=== PATIENT | male | born 1945 | race Caucasian/White ===

== ENCOUNTER 2021-12-14 08:58 | Inpatient (IN) | payer OTHER, SELFPAY ==
[2021-12-14] VITALS (20 sets, daily range): BP systolic 88–135; BP diastolic 53–79; PULSE 63–128; RESP 16–29; TEMP 35.7–38.5; O2SAT 94–100; BMI 26.3
--- NOTE | ~2021-12-14 | NM_ITS ---
EXAMINATION: NM hepatobiliary wo pharm DATE: 12/23/2021 16:26 INDICATION: Acute cholecystitis COMPARISON: CT and ultrasound dated 12/14/2021 TECHNIQUE: 5.0 mCi Tc-99m mebrofenin (Choletec) was administered intravenously. Scintigraphic images of the abdomen were obtained for one hour. Additional 1 hour and 15 minute delayed images were obtai tl. FINDINGS: There is delayed clearance of radiotracer from the blood pool. There is homogeneous tracer uptake by the liver. There is delayed excretion of activity with no activity seen in the common duct, gallbladd er or bowel on the 60 minute imaging. There is however prominent activity within the gallbladder on t he 1 hour and 15 minute image were additional activity seen both in the common bile duct as well as i n the small bowel. IMPRESSION: 1. Activity seen within the gallbladder at 1 hour and 15 minutes which strongly argues against acute cholecystitis. The differential for the prominent edematous wall thickening of the gallbladder would also include hepatitis, cirrhosis, heart disease, renal failure, sepsis or other generalized edema f orming states. 2. Delayed clearance of activity from the blood pool without evident biliary ductal obstruction with activity extending to the small bowel and without evident intra-articular extra hepatic ductal or julissa richard dilation on prior imaging which suggests other liver disease such as cirrhosis or hepatitis. Reviewed, dictated and finalized at location A. IMPRESSION: 1. Activity seen within the gallbladder at 1 hour and 15 minutes which strongl y argues against acute cholecystitis. The differential for the prominent edemat ous wall thickening of the gallbladder would also include hepatitis, cirrhosis, heart disease, renal failure, sepsis or other generalized edema forming states . 2. Delayed clearance of activity from the blood pool without evident biliary du ctal obstruction with activity extending to the small bowel and without evident intra-articular extra hepatic ductal or ductal dilation on prior imaging which suggests other liver disease such as cirrhosis or hepatitis.
--- NOTE | ~2021-12-14 | US_ITS ---
US abdomen limited DATE: 12/14/2021 11:36 INDICATION: Covid or wall thickening. Nausea, fever TECHNIQUE: Real-time imaging of liver, pancreas, gallbladder areas COMPARISON: None FINDINGS: There is focal calcification of the gallbladder wall and thickening of the gallbladder wall up to 3.4 mm. There is severe pericholecystic septated fluid. Gallbladder gangrene is not excluded. Clinical and possible surgical correlation is advised. There are multiple enlarged upper abdominal lymph nodes. No hepatic or pancreatic space-occupying mass lesion is evident. Normal hepatopedal portal venous gali w direction. The common bile duct measures 7 mm. IMPRESSION: Gallbladder wall thickening, small focal gallbladder wall calcification and very prominen t septated fluid or edema in the pericholecystic area; gallbladder gangrene is not excluded. Clinical and possibly surgical correlation is recommended. Upper abdominal lymphadenopathy Reviewed, dictated and finalized at Location [facility]. Reviewed, dictated and finalized at location A. IMPRESSION: Gallbladder wall thickening, small focal gallbladder wall calcifica tion and very prominent septated fluid or edema in the pericholecystic area; ga llbladder gangrene is not excluded. Clinical and possibly surgical correlation is recommended. Upper abdominal lymphadenopathy
--- NOTE | ~2021-12-14 | CT_ITS ---
EXAMINATION: CT abdomen pelvis wo con DATE: 12/14/2021 10:05 INDICATION: Nausea, fever. History kidney stones. TECHNIQUE: Computed tomography (CT) of the abdomen and pelvis was performed without intravenous contr ast. Automated exposure control and iterative reconstruction technique were employed. Exam dose: 390 .32 mGy-cm total exam DLP. COMPARISON: None. FINDINGS: There is minimal discoid atelectasis or scarring at the lung bases. No basilar infiltrate o r consolidation. Normal heart size. Coronary artery calcifications. Moderately large sliding hiatal hernia. There is gastrohepatic, periportal and superior periaortic and aortocaval and pericaval lymphadenopat hy, upper left periaortic lymph nodes measuring up to 2.2 cm, pericaval lymph nodes measuring up to 2 .3 cm greater than 3 cm dimension. There is very prominent pericholecystic fluid collection or thickening/edema of the gallbladder wall. Small, lateral wall focal calcification versus small gallstone(s(. Gallbladder ultrasound may be hel pful for further evaluation. No bile duct or pancreatic duct dilatation. No hepatic, splenic, pancreatic or adrenal space-occupying mass lesion is evident. Multiple right renal cyst measuring up to 4 cm diameter. There are multiple upper pole and lower pole small right renal nonobstructing calculi and one or 2 sm all left renal calcifications are arterial calcifications. No ureteral calculus or hydroureteronephro sis is noted. There is atherosclerotic calcification of the abdominal aorta and at the origins of celiac and superi or mesenteric and left renal arteries, inferior mesenteric artery calcification. No abdominal aortic aneurysm. There is calcification of the iliac and femoral arteries. Status post prostatectomy and bilateral pelvic sidewall lymph node dissection. There is moderate diff use thickening of the urinary bladder wall. Mild sigmoid colon diverticulosis; no evidence of diverticulitis. No bowel obstruction or intraperitoneal free air. Old healed bilateral rib fractures. Degenerative changes of the thoracic and lumbar spine. No suspicious osteolytic or osteoblastic lesio ns are noted. IMPRESSION: Prominent upper abdominal lymphadenopathy including gastrohepatic, periportal and partic ularly superior periaortic, aortocaval and pericaval locations; consider lymphoma, metastatic disease Very prominent pericholecystic fluid or gallbladder wall thickening/edema Possible small focal gallbladder wall calcification versus small gallstone(s) Right renal cysts measuring up to 4 cm Bilateral nonobstructive nephrolithiasis Large hiatal hernia Mild colonic diverticulosis; no evidence of diverticulitis Status post prostatectomy and bilateral pelvic side wall lymph node dissection Reviewed, dictated and finalized at Location [facility]. Reviewed, dictated and finalized at location A. IMPRESSION: Prominent upper abdominal lymphadenopathy including gastrohepatic, periportal and particularly superior periaortic, aortocaval and pericaval loca tions; consider lymphoma, metastatic disease Very prominent pericholecystic fluid or gallbladder wall thickening/edema Possible small focal gallbladder wall calcification versus small gallstone(s) Right renal cysts measuring up to 4 cm Bilateral nonobstructive nephrolithiasis Large hiatal hernia Mild colonic diverticulosis; no evidence of diverticulitis Status post prostatectomy and bilateral pelvic side wall lymph node dissection
--- NOTE | ~2021-12-14 | BM_ITS ---
EXAMINATION: CCL bone marrow asp w bx diag ORDER COMPLETED DATE: 12/18/2021 11:35 INDICATION: Pancytopenia and lymphadenopathy TECHNIQUE: A time-out was performed to verify the patient's name, date of , and procedure to b e performed. The procedure including the risks and benefits was discussed with the patient. Risks dis cussed included bleeding, infection, nerve injury and allergic reaction. The patient understood the r isks and agreed to proceed. The skin overlying the right posterior iliac spine was prepped and draped in usual sterile fashion. Anesthetic was administered with 1% lidocaine subcutaneously. Moderate co nscious sedation was achieved with 50 mcg fentanyl IV. An 11 gauge needle was inserted into the ilium with fluoroscopic guidance. Bone marrow was aspirated. An 8 gauge needle was then inserted into the ilium with fluoroscopic guidance. A core bone marrow biopsy was obtained. The needle was removed and the entry site was cleaned and dressed. There were no immediate complications. A total of 47 fluoros copic images were recorded. Fluoroscopy exposure time was 0.1 minutes. FINDINGS: Real-time fluoroscopy demonstrates the biopsy needle tip overlying the right posterior zackary c spine. IMPRESSION: 1. Successful fluoroscopic guided bone marrow aspiration. 2. Successful fluoroscopic guided bone marrow biopsy. Reviewed, dictated and finalized at location A.
--- NOTE | ~2021-12-14 | XR_ITS ---
XR chest 1V portable DATE: 12/14/2021 09:26 INDICATION: Fever which began yesterday. Weakness. TECHNIQUE: Portable AP chest on December 14, 2021 at 0922 hours COMPARISON: None FINDINGS: Heart size appears within normal range. Is aortic calcification and tortuosity. No pulmonary infiltrate or consolidation, pleural effusion or pulmonary vascular congestion or pneumo thorax is detected. Osteopenia. IMPRESSION: No active cardiopulmonary disease Aortic calcification and tortuosity Reviewed, dictated and finalized at location A.
--- NOTE | ~2021-12-14 | US_ITS ---
EXAMINATION: US venous doppler [facility] DATE: 12/15/2021 10:14 INDICATION: Bilateral lower limb swelling. TECHNIQUE: Grayscale images without and with compression and Doppler images of the bilateral lower ex tremity veins were obtained. COMPARISON: None. FINDINGS: The right common femoral vein, profunda (deep) femoral vein, femoral vein, popliteal vein, peroneal v ein, posterior tibial veins, and greater saphenous vein are patent, noting somewhat limited visualiza tion of the calf veins. The left common femoral vein, profunda femoral vein, femoral vein, popliteal vein, peroneal vein, pos terior tibial veins, and greater saphenous vein are patent, noting somewhat limited visualization of the calf veins. IMPRESSION: 1. Somewhat limited evaluation of the calf veins, within that constraint, patent bilateral lower ext remity veins. No evidence of deep venous thrombosis. Reviewed, dictated and finalized at location K. IMPRESSION: 1. Somewhat limited evaluation of the calf veins, within that constraint, thomas nt bilateral lower extremity veins. No evidence of deep venous thrombosis.
--- NOTE | 2021-12-14 09:12 | ECG_ITS ---
Measurements Intervals [place] Rate: 120 P: -32 FL: 133 QRS: -12 QRSD: 89 T: 26 QT: 293 QTc: 416 Interpretive Statements SINUS TACHYCARDIA ABNORMAL RHYTHM ECG NO PREVIOUS ECG AVAILABLE FOR COMPARISON Electronically Signed On 12-14-2021 13:42:12 CDT by Lupe Leos M.D.
--- NOTE | 2021-12-14 09:34 | ED.WEAKNESS ---
HPI - Weakness General Chief complaint: Weakness <Carmela Santiago PA-C - Last Filed: 12/14/21 19:51> Stated complaint: gen. weakness <Carmela Santiago PA-C - Last Filed: 12/14/21 19:51> Time Seen by Provider: 12/14/21 09:08 <Carmela Santiago PA-C - Last Filed: 12/14/21 19:51> Source: patient <MARKO Ackerman Last Filed: 12/14/21 19:51> Mode of arrival: EMS <MARKO Ackerman Last Filed: 12/14/21 19:51> Limitations: other (Poor historian) <Carmela Santiago PA-C - Last Filed: 12/14/21 19:51> History of Present Illness HPI Narrative: This is a 76-year-old male that presents to the emergency department for generalized weakness. Reports over the last couple of weeks he has had nausea and decreased appetite. Yesterday he was seen at another ER and noted to be febrile as well. Diagnosed with viral syndrome. He had negative COVID and influenza tests. Reports today he was feeling so weak that he was unable to get off of the couch. Reports that his legs have become more swollen recently. He is unsure how long this has been going on. He used to be on diuretics, but was taken off of these as they told him he did not need them anymore. He also reports longstanding history of numerous kidney stones for which she sees a urologist in [place]. Denies chest pain, shortness of breath, vomiting, diarrhea, dysuria, or hematuria. <Carmela Santiago PA-C - Last Filed: 12/14/21 19:51> Related Data Home medications: Home Medications Medication Instructions Recorded Confirmed Adult Low Dose Aspirin 81 mg BYMOUTH QID 12/14/21 12/14/21 lansoprazole [Prevacid 24Hr] 15 mg PO DAILY 12/14/21 12/14/21 metoprolol tartrate 50 mg PO DAILY 12/14/21 12/14/21 vxgbcdyh-iqv-KI-lycopen-lutein 1 tablet PO DAILY 12/14/21 12/14/21 [Centrum Silver Men] potassium citrate 10 meq PO BID 12/14/21 12/14/21 pravastatin 20 mg PO DAILY 12/14/21 12/14/21 <Carmela Santiago PA-C - Last Filed: 12/14/21 19:51> Allergies/Adverse reactions: Allergies Allergy/AdvReac Type Severity Reaction Status Date / Time No Known Allergies Allergy Unverified 12/14/21 09:07 <Carmela Santiago PA-C - Last Filed: 12/14/21 19:51> Review of Systems Review of Systems: CONSTITUTIONAL: Reports fever ENT: Denies congestion, sore throat CARDIOVASCULAR: Reports edema. Denies chest pain RESPIRATORY: Denies cough or dyspnea. GASTROINTESTINAL: Reports nausea. Denies abdominal pain, vomiting, or diarrhea. GENITOURINARY: Denies dysuria or hematuria. NEUROLOGIC: Reports generalized weakness. <Carmela Santiago PA-C - Last Filed: 12/14/21 19:51> All systems reviewed & are unremarkable except as noted in HPI and below <Carmela Santiago PA-C - Last Filed: 12/14/21 19:51> [facility] Past Medical History Medical History: Medical History Arthritis Gout Hyperlipidemia Hypertension Kidney stones Prostate cancer <Carmela Santiago PA-C - Last Filed: 12/14/21 19:51> Surgical History Surgical History: Surgical History History of appendectomy History of arthroplasty of right knee History of inguinal hernia repair History of prostatectomy (2016) History of tonsillectomy <Carmela Santiago PA-C - Last Filed: 12/14/21 19:51> Family History Family History: Family History Father Colon cancer Cerebrovascular accident Other Congestive heart failure <MARKO Ackerman Last Filed: 12/14/21 19:51> Social History Social History: Social History Social History: Surrogate decision maker: Elida Bautista, sibling or Wilian Bautista, [id number]. Code status: Full code. Smoking status: Never smoker Alcohol intake: never Substance use: never Substance use type: does not use Additional marisa
[2021-12-14 10:00] LABS: Hematocrit 34.6 % (42.0-52.0); Hemoglobin 11.9 g/dL (14.0-18.0); Immature Platelet Fraction Pct 5.7 % (0.9-11.2); Mean Corpuscular HGB Conc 34.4 g/dl (32-36); Mean Corpuscular Hemoglobin 29.9 pg (26-34); Mean Corpuscular Volume 86.9 fl (80-100); Mean Platelet Volume 11.4 fl (7.4-10.4); Platelet Count Result 87 k/mm3 (150-375); Red Blood Count 3.98 M/mm3 (4.6-6.20); Red Cell Distribution Width 14.1 % (11.5-14.5); White Blood Count 3.8 K/mm3 (4.5-10.0)
[2021-12-14] MEDS: SODIUM CHLORIDE 0.9% IV 500 ML 999 ML IV CONT ×4 (10:04→13:12)
[2021-12-14 10:13] LABS: Lactic Acid Reflex 1.8 mmol/L (0.7-2.0)
[2021-12-14 10:14] LABS: INR 1.5; Prothrombin Time 17.6 Seconds (11.1-14.7)
[2021-12-14 10:15] LABS: Alanine Aminotransferase 72 U/L (4-50); Alkaline Phosphatase 325 U/L (38-126); Anion Gap 6 mmol/L (8-16); Aspartate Amino Transferase 113 U/L (17-59); Bilirubin,Total 1.2 mg/dL (0.2-1.3); Blood Urea Nitrogen 22 mg/dL (9-20); CRP 1.6 mg/dL (<1.0); Calcium 7.9 mg/dL (8.4-10.2); Carbon Dioxide 20 mmol/L (22-30); Chloride 105 mmol/L (98-107); Estimated CRCL calculation 48 ml/min; Estimated Glomerular Filt Rate > 60; Glucose 117 mg/dL (65-110); Lipase 361 U/L (23-300); Partial Thromboplastin Time 45.1 SECONDS (22.3-36.8); Potassium 4.1 mmol/L (3.4-5.0); Sodium 131 mmol/L (137-145)
[2021-12-14 10:45] LABS: Add Urine Microscopic? YES; Appearance Urine Clear (Clear); Bilirubin Urine Negative (Negative); Blood Urine 1+ (Negative); Color Urine Amber (Yellow); Glucose Urine UA Negative (Negative); Ketones Urine Trace mg/dL (Negative); Leukocyte Esterase Ur Negative LEU/UL (Negative); Mucus Urine Rare /lpf; Nitrate Urine Negative (Negative); Protein Urine 1+ mg/dL (Negative); RBC Urine 0-2 /hpf (0-2); Specific Grav Ur 1.021 (1.001-1.035)
[2021-12-14 10:55] LABS: Band Neutrophils Percent 10 % (0-6); Lymphocytes Absolute Manual 0.68 K/mm3 (1.1-4.5); Lymphocytes Percent Manual 18 % (18-44); Monocytes Absolute Manual 0.15 K/mm3 (0.1-0.90); Monocytes Percent Manual 4 % (3-9); Neutrophils Absolute Manual 2.96 K/mm3 (1.3-6.7); Neutrophils Percent Manual 68 % (46-73); Platelet Estimate Decreased (Adequate); Total Cells Counted 100
--- NOTE | 2021-12-14 13:38 | PC.NURSE ---
IV fluids still running when transferring to the floor.
--- NOTE | 2021-12-14 13:45 | PM.IMHP ---
H&P: HPI History of Present Illness Date/Time: 12/14/21 13:45 Chief Complaint: Weakness and nausea. Narrative: This is a pleasant 76-year-old male with history of hypertension, hyperlipidemia, prostate cancer status post prostatectomy, GERD, gout, and kidney stones who presented to the emergency department via EMS from home for evaluation of weakness and nausea. He reports a gradual onset of nausea and decreased appetite over the last 3 to 4 weeks which led him to make an appointment with his doctor yesterday at which time he was directed to the ED at [facility] given concerns for dehydration. Per patient report, he was diagnosed with a viral syndrome and was hydrated and discharged home. He did not sleep well last night due to sweats and low-grade temperature and with further questioning it sounds as though this has been an ongoing issue for him at night and in the mornings these past several weeks. This morning he felt a bit confused and weak and he was brought in for evaluation. On arrival to the emergency department his temperature was 100.3? F and his blood pressure was as low as 88/53 although that has improved with IV fluids. Pertinent labs include a mild pancytopenia with 10% bands on manual differential, mild prolonged coags, and elevated LFTs with a normal bilirubin. CT of the abdomen and pelvis showed prominent upper abdominal lymphadenopathy and pericholecystic fluid or gallbladder wall thickening/edema and subsequent abdominal ultrasound showed gallbladder wall thickening with a small focal gallbladder wall calcification and prominent septated fluid or edema in the armin cholecystic area. He is being admitted in this setting for further treatment of possible cholecystitis and evaluation of his abnormal imaging findings. At the time my evaluation he is resting comfortably and feels somewhat better after receiving IV fluids. He lost 20 lb 4 years ago after his passed and his weight has been steady since that time. He has noticed some mild swelling in his legs, right greater than left though he has attributed that to not getting up and about as much over the last several weeks. Aside from nausea, weakness, and fever he has not really had any other significant symptoms to complain about. He denies headache, neck ache, congestion, sore throat, cough, vomiting, diarrhea, and dysuria. He also denies lightheadedness, dizziness, syncope, near syncope, chest pain, pleuritic pain, shortness of breath, paroxysmal nocturnal dyspnea, and orthopnea. He has not noticed any palpable lymphadenopathy. Review of Systems Review of Systems: Twelve systems were reviewed and are negative except for as per HPI. [facility] Past Medical History Medical History Arthritis Gout Hyperlipidemia Hypertension Kidney stones Prostate cancer Surgical History Surgical History (Updated 12/14/21 @ 21:32 by Tanya Eaton PA-C) History of appendectomy History of arthroplasty of right knee History of inguinal hernia repair History of prostatectomy (2016) History of tonsillectomy Family History Family History Father Colon cancer Cerebrovascular accident Other Congestive heart failure Social History Social History (Updated 12/14/21 @ 21:33 by Tanya Eaton PA-C) Social History: Surrogate decision maker: Elida Bautista, sibling or Wilian Bautista, [id number]. Code status: Full code. Smoking status: Never smoker Alcohol intake: never Substance use: never Substance use type: does not use Additional living arrangements comments: The patient is and lives in [place]. He has no children. Additional occupation/education comments: Retired pharmacist. Spiritual care concerns: No Meds Home Medications and Allergies Home Medications Medication Instructions Recorded Confirmed Type Adult Low
--- NOTE | 2021-12-14 13:56 | ADMGEN ---
This patient, Bartolo Dent, was admitted to IMU Room 201-01. Patient/family oriented to hospital policies and general routines including ID bracelet, bed and alarms, visiting hours, pain management, procedures, bathroom and other care routines, personal items, smoking policy, room service/diet, and visiting hours. Information on how to activate the Rapid Response Team has been discussed. Patient/Family are encouraged to report perceived risks to care and to ask questions if they do not understand what they are told or what they should do.
[2021-12-14 15:41] LABS: Immature Reticulocyte Fraction 15.7 % (3.0-15.9); Reticulocyte Hemoglobin Conten 32.9 pg (28.2-35.7); Reticulocyte Percent 1.56 % (0.7-4.3); Reticulocytes Absolute 0.06 B/L (32.2-175.7)
[2021-12-14 15:47] LABS: Creatine Kinase 1286 U/L (55-170); Lactate Dehydrogenase 1991 U/L (313-618); Magnesium 2.1 mg/dL (1.6-2.3); Phosphorus 3.7 mg/dL (2.5-4.5); Uric Acid 4.7 mg/dL (3.5-8.5)
[2021-12-14 16:25] LABS: Iron 19 ug/dL (49-181)
[2021-12-14 16:35] LABS: Percent Iron Saturation 8 % (20-50)
[2021-12-14 16:57] LABS: Thyroid Stimulating Hormone Reflex 0.767 uIU/mL (0.465-4.68)
[2021-12-14 17:00] LABS: Folic Acid > 20.0 ng/mL (2.76->20)
[2021-12-14 17:02] LABS: Hepatitis B Surface Antigen Negative (Negative)
--- NOTE | 2021-12-14 17:06 | PC.NURSE ---
RN did [place] on patient. Patient was 27% responsive to fluid. Hiliary PA notified.
[2021-12-14 17:07] LABS: HAV RESULT Negative (Negative); Hepatitis B Core IgM Result Negative (Negative)
[2021-12-14 17:19] LABS: Hepatitis C Virus Antibody Negative (Negative)
[2021-12-14] MEDS: LACTATED RINGERS 1,000 ML 999 ML IV CONT (17:34)
[2021-12-14] MEDS: LACTATED RINGERS 1,000 ML 80 ML IV CONT (17:34)
[2021-12-14] MEDS: POTASSIUM CITRATE 5 MEQ TAB CR 10 MEQ PO (21:28)
[2021-12-14] MEDS: ACETAMINOPHEN 325 MG TABLET 650 MG PO (21:29)
[2021-12-15] VITALS (20 sets, daily range): BP systolic 90–143; BP diastolic 51–82; PULSE 71–115; RESP 20–24; TEMP 36.7–38; O2SAT 97–100
[2021-12-15] MEDS: ACETAMINOPHEN 325 MG TABLET 650 MG PO ×3 (04:27→22:49)
[2021-12-15 05:03] LABS: Hematocrit 33.9 % (42.0-52.0); Hemoglobin 11.4 g/dL (14.0-18.0); Immature Platelet Fraction Pct 6.2 % (0.9-11.2); Mean Corpuscular HGB Conc 33.6 g/dl (32-36); Mean Corpuscular Hemoglobin 29.6 pg (26-34); Mean Corpuscular Volume 88.1 fl (80-100); Mean Platelet Volume 11.5 fl (7.4-10.4); Platelet Count Result 82 k/mm3 (150-375); Red Blood Count 3.85 M/mm3 (4.6-6.20); Red Cell Distribution Width 14.4 % (11.5-14.5); White Blood Count 4.8 K/mm3 (4.5-10.0)
[2021-12-15 05:16] LABS: Alanine Aminotransferase 71 U/L (4-50); Albumin Level 2.4 g/dL (3.5-5.1); Alkaline Phosphatase 281 U/L (38-126); Anion Gap 3 mmol/L (8-16); Aspartate Amino Transferase 156 U/L (17-59); Bilirubin,Total 1.2 mg/dL (0.2-1.3); Blood Urea Nitrogen 19 mg/dL (9-20); Calcium 7.3 mg/dL (8.4-10.2); Carbon Dioxide 22 mmol/L (22-30); Chloride 106 mmol/L (98-107); Estimated CRCL calculation 52 ml/min; Estimated Glomerular Filt Rate > 60; Glucose 104 mg/dL (65-110); Lipase 253 U/L (23-300); Sodium 131 mmol/L (137-145)
[2021-12-15 05:19] LABS: Creatine Kinase 2102 U/L (55-170)
[2021-12-15] MEDS: LACTATED RINGERS 1,000 ML 100 ML IV CONT ×2 (05:36→16:30)
[2021-12-15] MEDS: OPTI-GEN TAB 1 TABLET PO (08:45)
[2021-12-15] MEDS: POTASSIUM CITRATE 5 MEQ TAB CR 10 MEQ PO ×2 (08:45→16:32)
[2021-12-15] MEDS: PANTOPRAZOLE 40 MG TABLET PO (08:45)
--- NOTE | 2021-12-15 10:07 | PM.IMPN ---
Progress Note: A&P Assessment and Plan (1) Abdominal lymphadenopathy: Code(s): R59.0 - Localized enlarged lymph nodes Status: Acute Assessment and Plan: - Heightened concern for potential oncological process due to extensive lymphadenopathy within the abdominal cavity. -hematology oncology is consulted at this time in the presence of pancytopenia. -surgery has evaluated and suggests that the amount of enlarged lymph nodes present in the abdominal cavity is extensive even for cholecystitis and recommends potential biopsy need in the future. (2) Transaminitis: Code(s): R74.01 - Elevation of levels of liver transaminase levels Status: Acute Assessment and Plan: -patient with transaminitis AST increasing from 08/29 yesterday 09/17/2055 today, ALT decreasing from 72-71 and alk-phos down to 281 from 11/08. Bilirubin is normal at 1.2. -both CT of the abdomen and pelvis as well as ultrasound of the right upper quadrant are suggestive of acute cholecystitis. -surgery consult and recommends treatment with IV antibiotics at this time versus surgery intervention. -will continue to trend liver enzymes during hospitalization (3) Pancytopenia: Code(s): D61.818 - Other pancytopenia Status: Acute Assessment and Plan: -to PVC today are marginally increased to 4.8 from 3.8 yesterday. Hemoglobin and hematocrit are stable at 11.4 33.9. Platelets remain low at 82. -etiology unknown. -heme Onc is consult for further recommendations. (4) Abnormal findings on diagnostic imaging of gallbladder: Code(s): R93.2 - Abnormal findings on diagnostic imaging of liver and biliary tract Status: Acute Assessment and Plan: -continue Zosyn q.6 hours. -general surgery consulted and recommends conservative treatment with antibiotics versus surgical intervention at this time. -as reflected an elevated transaminases. Will continue to trend downward. -consider repeat imaging if worsening of clinical condition (5) Generalized weakness: Code(s): R53.1 - Weakness Status: Acute Assessment and Plan: -PTOT evaluation -likely secondary to elevated CK, question rhabdo -continue hydration with LR at 100 mL/hour. -trend CK, LDH and CRP. (6) Hypertension: Qualifiers: Hypertension type: unspecified Qualified Code(s): I10 - Essential (primary) hypertension Code(s): I10 - Essential (primary) hypertension Status: Acute Assessment and Plan: -there is been interval improvement in blood pressures. -continue IV fluids and hold oral antihypertensives. -continue to monitor vital signs, continue telemetry. (7) Hyperlipidemia: Qualifiers: Hyperlipidemia type: unspecified Qualified Code(s): E78.5 - Hyperlipidemia, unspecified Code(s): E78.5 - Hyperlipidemia, unspecified Status: Acute Assessment and Plan: -hold statin in setting of transaminitis. Time Spent With Patient Time with patient: 25 - 35 minutes Subjective Date/time seen: 12/15/21 10:07 This pt. was examined at the bedside today in interval assessment after being admitted to the hospital for multiple issues including abdominal LN, Transaminitis, Pancytopenia, concern for acute cholecystitis, HTN, Generalized weakness and fatigue, and HLD. Pts CT scan showed concerning signs for potential concern of widespread, prominent LN's, as well as gallbladder thickening. In addition he has right renal cysts. Abdomen US was also concerning for possible GB etiology along with LN. Surgery was consulted and we are currently awaiting their recommendations. Pt. also showed pancytopenia upon arrival to ER and the etiology of this is uncertain, infection vs. lymphoma? Will consult Hematology for their specific recommendations. He remains on Zosyn currently. Pt. endorsed that he had recently had swelling of his legs, and was unsure why. He will be having Venous Dopplers today. He
--- NOTE | 2021-12-15 10:20 | PM.CNGS ---
Assessment and Plan Assessment and plan (1) Acute cholecystitis: Code(s): K81.0 - Acute cholecystitis Status: Acute Assessment and Plan: exam benign, seems to be improving c conservative measures including IV abx, donnie reg diet this am (2) Abdominal lymphadenopathy: Code(s): R59.0 - Localized enlarged lymph nodes Status: Acute Assessment and Plan: ? etiology, seems extensive for cholecystitis, will likely need repeat imaging and possible biopsy History of Present Illness Consult details Consult date: 12/15/21 Reason for consult: other (weakness, nausea, anorexia) Requesting physician: Tanya Eaton PA-C Narrative: Pt is a 76 y/o M presenting to ED c/o severe weakness over last few wks. Pt reports poor appetite and nausea over about the last month. Pt denies any abd pain, fevers, etc. Pt has had extensive workup suggestive of acute cholecystitis and generalized upper abdominal LAD. Upon evaluation today, pt reports he is feeling much better and donnie reg diet. Pt denies any abd pain, changes in bowel habits, bloating. Review of Systems Constitutional: Constitutional: Reports anorexia, Denies chills, Reports fatigue, Denies fever(s), Denies headache(s), Denies increased appetite, Reports lethargy, Reports malaise, Reports poor appetite, Reports weakness, Denies weight gain and Denies weight loss Eyes: Eyes: Reports no additional eye complaints ENT: Reports system reviewed and no additional complaints, except as documented Cardiovascular: Cardiovascular: Reports no additional cardiovascular complaints Respiratory: Respiratory: Reports no additional respiratory complaints Gastrointestinal: Gastrointestinal: Reports as per HPI, Denies abdominal pain, Denies bloating, Denies change in stool character, Denies constipation, Denies GI cramping, Reports heartburn, Denies diarrhea, Reports nausea and Denies vomiting Genitourinary: Genitourinary: Reports no additional male genitourinary complaints Musculoskeletal: Musculoskeletal: Reports no additional musculoskeletal complaints Integumentary/Breasts: Skin/Breast: Reports system reviewed and no additional complaints, except as docu Neurologic: Reports system reviewed and no additional complaints, except as documented Psychiatric: Psychiatric: Reports no additional psychiatric complaints Endocrine: Endocrine: Reports no additional endocrine complaints Hematologic/Lymphatic: Hematologic/Lymphatic: Reports no additional hematologic/lymphatic complaints Allergic/Immunologic: Allergic/Immunologic: Reports no additional allergic/immunologic complaints PMFSH Past Medical History Medical History Arthritis Gout Hyperlipidemia Hypertension Kidney stones Prostate cancer Surgical History Surgical History History of appendectomy History of arthroplasty of right knee History of inguinal hernia repair History of prostatectomy (2016) History of tonsillectomy Family History Family History Father Colon cancer Cerebrovascular accident Other Congestive heart failure Social History Social History Social History: Surrogate decision maker: Elida Bautista, sibling or Wilian Bautista, [id number]. Code status: Full code. Smoking status: Never smoker Alcohol intake: never Substance use: never Substance use type: does not use Additional living arrangements comments: The patient is and lives in [place]. He has no children. Additional occupation/education comments: Retired pharmacist. Spiritual care concerns: No Meds Home Medications and Allergies Home Medications Medication Instructions Recorded Confirmed Type Adult Low Dose Aspirin 81 mg TATYANA QID 12/14/21 12/14/21 History lansoprazole [Pr
[2021-12-15] MEDS: ONDANSETRON INJ 4 MG/2 ML VIAL IV PUSH (16:32)
[2021-12-16] VITALS (12 sets, daily range): BP systolic 105–119; BP diastolic 52–76; PULSE 74–99; RESP 16–20; TEMP 36.5–38.2; O2SAT 95–98; BMI 28.0
[2021-12-16] MEDS: LACTATED RINGERS 1,000 ML 100 ML IV CONT (02:14)
[2021-12-16 04:51] LABS: Basophils Percent Auto 0.3 % (0.2-1.2); Hematocrit 32.4 % (42.0-52.0); Hemoglobin 10.8 g/dL (14.0-18.0); Immature Granulocyte Absolute 0.03 K/mm3 (0.00-0.031); Immature Granulocyte Percent A 0.8 % (0-0.5); Immature Platelet Fraction Pct 7.1 % (0.9-11.2); Lymphocytes Absolute Auto 0.74 K/mm3 (0.9-3.2); Lymphocytes Percent Auto 20.3 % (18.3-44.2); Mean Corpuscular HGB Conc 33.3 g/dl (32-36); Mean Corpuscular Hemoglobin 29.4 pg (26-34); Mean Corpuscular Volume 88.3 fl (80-100); Mean Platelet Volume 11.1 fl (7.4-10.4); Monocytes Absolute Auto 0.3 K/mm3 (0.1-0.6); Neutrophils Absolute Auto 2.6 K/mm3 (1.3-6.7); Neutrophils Percent Auto 70.6 % (45.5-73.1); Platelet Count Result 74 k/mm3 (150-375); Red Blood Count 3.67 M/mm3 (4.6-6.20); Red Cell Distribution Width 14.5 % (11.5-14.5); White Blood Count 3.6 K/mm3 (4.5-10.0)
[2021-12-16 05:06] LABS: Alanine Aminotransferase 69 U/L (4-50); Albumin Level 2.1 g/dL (3.5-5.1); Alkaline Phosphatase 249 U/L (38-126); Anion Gap 2 mmol/L (8-16); Aspartate Amino Transferase 131 U/L (17-59); Bilirubin,Total 1.1 mg/dL (0.2-1.3); Blood Urea Nitrogen 18 mg/dL (9-20); CRP 5.5 mg/dL (<1.0); Calcium 7.1 mg/dL (8.4-10.2); Carbon Dioxide 24 mmol/L (22-30); Chloride 103 mmol/L (98-107); Creatine Kinase 416 U/L (55-170); Estimated CRCL calculation 52 ml/min; Estimated Glomerular Filt Rate > 60; Glucose 107 mg/dL (65-110); Lactate Dehydrogenase 1744 U/L (313-618); Lipase 324 U/L (23-300); Magnesium 1.9 mg/dL (1.6-2.3); Potassium 3.8 mmol/L (3.4-5.0); Sodium 129 mmol/L (137-145)
[2021-12-16 05:22] LABS: Burr Cells 1+ (NORMAL); Platelet Estimate Decreased (Adequate)
[2021-12-16] MEDS: OPTI-GEN TAB 1 TABLET PO (08:44)
[2021-12-16] MEDS: POTASSIUM CITRATE 5 MEQ TAB CR 10 MEQ PO ×2 (08:44→16:32)
[2021-12-16] MEDS: PANTOPRAZOLE 40 MG TABLET PO (08:44)
[2021-12-16] MEDS: ONDANSETRON INJ 4 MG/2 ML VIAL IV PUSH (08:46)
[2021-12-16] MEDS: SODIUM CHLORIDE 0.9% IV 1,000 ML 100 ML IV CONT (10:53)
[2021-12-16] MEDS: ASCORBIC ACID 500 MG TABLET PO (10:53)
[2021-12-16] MEDS: POLYSACCHARIDE IRON COMPLEX 150 MG CAPSULE PO (10:53)
--- NOTE | 2021-12-16 11:04 | PM.PNGS ---
Progress Note: A&P Assessment and Plan (1) Acute cholecystitis: Code(s): K81.0 - Acute cholecystitis Status: Acute Assessment and Plan: completely asymptomatic, donnie diet, exam benign, cont abx for now (2) Abdominal lymphadenopathy: Code(s): R59.0 - Localized enlarged lymph nodes Status: Acute Assessment and Plan: will need reimaging and poss biopsy Subjective Subjective Date/Time Seen: 12/16/21 11:04 feels ok, still a little weak, donnie diet, no pain, no N/V Review of Systems Review of Systems: All systems reviewed & are unremarkable except as noted in HPI and below Exam Const: General: cooperative, comfortable and no acute distress Resp: Auscultation: clear to auscultation bilaterally Cardio: Rate: regular rate Rhythm: regular rhythm GI: Inspection: normal to inspection GI Palp: No abdominal tenderness, Yes Soft to palpation, No Tenderness to palpation present (GI), No Guarding due to palpation present (GI) and No Rigid due to palpation Objective Data Vital Signs Vital Signs: Vital Signs - 24 hr 12/15/21 12:00 12/15/21 14:00 12/15/21 16:00 Temperature 36.7 C 37.0 C Pulse Rate 74 88 82 Respiratory Rate 20 24 H Blood Pressure 90/57 L 93/51 L Pulse Oximetry 98 99 12/15/21 18:00 12/15/21 19:26 12/15/21 20:00 Temperature 36.9 C Pulse Rate 83 87 92 Respiratory Rate 20 20 Blood Pressure 98/57 L Pulse Oximetry 100 100 12/15/21 22:00 12/15/21 22:49 12/15/21 23:12 Temperature 38.0 C H 38.0 C H Pulse Rate 95 115 H Respiratory Rate 20 Blood Pressure 143/82 H Pulse Oximetry 98 12/15/21 23:45 12/16/21 00:00 12/16/21 02:00 Temperature 37.2 C Pulse Rate 99 92 Respiratory Rate 20 Blood Pressure Pulse Oximetry 98 12/16/21 04:00 12/16/21 06:00 12/16/21 08:00 Temperature 37.3 C 36.5 C Pulse Rate 82 74 84 Respiratory Rate 20 16 Blood Pressure 105/71 119/69 Pulse Oximetry 98 98 12/16/21 10:00 Temperature Pulse Rate 95 Respiratory Rate Blood Pressure Pulse Oximetry Intake/Output Intake/Output: Intake & Output 12/13/21 12/14/21 12/15/21 12/16/21 23:59 23:59 23:59 23:59 Intake Total 3440 3240 1864 Output Total 640 1350 450 Balance 2800 1890 1414 Meds/Results Medications: Active Medications Generic Name Dose Route Start Last Admin Trade Name Freq PRN Reason Stop Dose Admin Acetaminophen 650 mg 12/14/21 21:22 12/15/21 22:49 Acetaminophen 325 Mg Tablet PO 650 mg Q6H PRN Administration Mild Pain (1-3) or Fever Ascorbic Acid 500 mg 12/16/21 10:25 12/16/21 10:53 Ascorbic Acid 500 Mg Tablet PO 500 mg DAILY CRISTIN Administration Piperacillin/Tazobactam/Dextrose 3.375 gm in 50 mls @ 100 mls/hr 12/14/21 21:00 12/16/21 10:48 Zosyn 3.375 Gm/D5w 50ml Pm IVPB Infused Q6H CRISTIN Infusion Sodium Chloride 1,000 mls @ 100 mls/hr 12/16/21 10:25 12/16/21 10:53 Normal Saline Iv IV CONT 100 mls/hr .Q10H CRISTIN Administration Multivitamins/Minerals 1 tablet 12/15/21 09:00 12/16/21 08:44 Opti-Gen Tab PO 1 tablet DAILY CRISTIN Administration Ondansetron HCl 4 mg 12/14/21 17:43 12/16/21 08:46 Ondansetron Inj 4 Mg/2 Ml Vial IV PUSH 4 mg Q6H PRN Administration Nausea And Vomiting Pantoprazole Sodium 40 mg 12/15/21 09:00 12/16/21 08:44 Pantoprazole 40 Mg Tablet PO 40 mg QAM CRISTIN Administration Polysaccharide Iron Complex 150 mg 12/16/21 10:25 12/16/21 10:53 Polysaccharide Iron Complex 150 Mg Capsule PO 150 mg DAILY@0800 CRISTIN Administration Potassium Citrate 10 meq 12/14/21 17:00 12/16/21 08:44 Potassium Citrate 5 Meq Tab Cr PO 10 meq BID CRISTIN Administration Radiology Results: ITS Impressions Chest X-Ray 12/14/21 09:27 IMPRESSION: No active cardiopulmonary disease Aortic calcification and tortuosity Abdomen/Pelvis CT 12/14/21 10:35 IMPRESSION: Prominent upper abdominal lymphadenopathy including gastrohepat
--- NOTE | 2021-12-16 13:40 | PM.IMPN ---
Progress Note: A&P Assessment and Plan (1) Abdominal lymphadenopathy: Code(s): R59.0 - Localized enlarged lymph nodes Status: Acute Assessment and Plan: - Heightened concern for potential oncological process due to extensive lymphadenopathy within the abdominal cavity. -hematology oncology is consulted at this time in the presence of pancytopenia. -surgery has evaluated and suggests that the amount of enlarged lymph nodes present in the abdominal cavity is extensive even for cholecystitis and recommends potential biopsy need in the future. - Aerobic bottle of Blood cultures is growing Gram positive Bacilli. We are awaiting identification and sensitivity at this time. - Continue Zosyn,. (2) Transaminitis: Code(s): R74.01 - Elevation of levels of liver transaminase levels Status: Acute Assessment and Plan: -patient with transaminitis. AST and ALT are improved as compared to yesterday, and pt's Bilirubin remains normal today,. Alk phos is still elevated. -both CT of the abdomen and pelvis as well as ultrasound of the right upper quadrant are suggestive of acute cholecystitis. -surgery consult and recommends treatment with IV antibiotics versus surgery intervention. They note today that the pt. is completely asymptomatic of acute cholecystitis. -will continue to trend liver enzymes during hospitalization. (3) Pancytopenia: Code(s): D61.818 - Other pancytopenia Status: Acute Assessment and Plan: -WBC's are decreased today to 3.6. Hemoglobin and hematocrit are stable at 10.8/32.4. Platelets remain even lower at 74. -etiology unknown. -heme Onc is consult for further recommendations. - Niferex and Vitamin C is ordered based upon Iron studies showing Iron of 19, TIBC of 236, and % saturations of 8. - Continue to trend labs. (4) Abnormal findings on diagnostic imaging of gallbladder: Code(s): R93.2 - Abnormal findings on diagnostic imaging of liver and biliary tract Status: Acute Assessment and Plan: -continue Zosyn q.6 hours. -general surgery consulted and recommends conservative treatment with antibiotics versus surgical intervention at this time as pt. is completely asymptomatic. -Will continue to trend downward. -consider repeat imaging if worsening of clinical condition (5) Generalized weakness: Code(s): R53.1 - Weakness Status: Acute Assessment and Plan: -PTOT evaluation and recommendations for rehab is made. - CK today is decreased to 416 from 2101. Inflammatory markers remain elevated. - Monitor all labs and VS and await Oncology consult. (6) Hypertension: Qualifiers: Hypertension type: unspecified Qualified Code(s): I10 - Essential (primary) hypertension Code(s): I10 - Essential (primary) hypertension Status: Acute Assessment and Plan: -there is been interval improvement in blood pressures. -continue IV fluids and hold oral antihypertensives. -continue to monitor vital signs, continue telemetry. - Stable BP. (7) Hyperlipidemia: Qualifiers: Hyperlipidemia type: unspecified Qualified Code(s): E78.5 - Hyperlipidemia, unspecified Code(s): E78.5 - Hyperlipidemia, unspecified Status: Acute Assessment and Plan: -hold statin in setting of transaminitis. (8) Hypocalcemia: Code(s): E83.51 - Hypocalcemia Status: Acute Assessment and Plan: - Serum calcium is 7.1, Albumin is 2.1. - Corrected Calcium for Albumin is 8.2. Time Spent With Patient Time with patient: 15 - 25 minutes Subjective Date/time seen: 12/16/21 0800 This pt. was examined at the bedside today in interval assessment. He states today that he is starting to feel better in the setting of being weak. In addition, he denies any pain at all. He remains on IV abx at this time. General Surgery has consulted and has opted for conservative management at this time. Oncology has been consulted
--- NOTE | 2021-12-16 16:52 | PC.NURSE ---
This patient, Bartolo Dent, was transferred to [[id number] ] on 12/16/21 at 1640. Personal belongings sent with patient. Report given to [ JACKIE Dillon @ [id number]]. Appropriate documentation sent with patient.
[2021-12-17] VITALS (9 sets, daily range): BP systolic 106–129; BP diastolic 68–83; PULSE 78–99; RESP 16–18; TEMP 37.4–37.9; O2SAT 97–98
[2021-12-17] MEDS: SODIUM CHLORIDE 0.9% IV 1,000 ML 100 ML IV CONT ×2 (02:19→13:39)
[2021-12-17] MEDS: ONDANSETRON INJ 4 MG/2 ML VIAL IV PUSH ×2 (02:50→08:20)
[2021-12-17 06:15] LABS: INR 1.4; Prothrombin Time 16.6 Seconds (11.1-14.7)
[2021-12-17 06:16] LABS: Partial Thromboplastin Time 49.4 SECONDS (22.3-36.8)
[2021-12-17 06:18] LABS: Basophils Percent Auto 0.3 % (0.2-1.2); Hematocrit 32.9 % (42.0-52.0); Hemoglobin 11.1 g/dL (14.0-18.0); Immature Granulocyte Absolute 0.04 K/mm3 (0.00-0.031); Immature Granulocyte Percent A 1.3 % (0-0.5); Immature Platelet Fraction Pct 7.3 % (0.9-11.2); Lymphocytes Percent Auto 26.7 % (18.3-44.2); Mean Corpuscular HGB Conc 33.7 g/dl (32-36); Mean Corpuscular Hemoglobin 29.6 pg (26-34); Mean Corpuscular Volume 87.7 fl (80-100); Mean Platelet Volume 11.5 fl (7.4-10.4); Monocytes Absolute Auto 0.3 K/mm3 (0.1-0.6); Monocytes Percent Auto 8.3 % (2.6-8.5); Neutrophils Absolute Auto 1.9 K/mm3 (1.3-6.7); Neutrophils Percent Auto 63.4 % (45.5-73.1); Platelet Count Result 72 k/mm3 (150-375); Red Blood Count 3.75 M/mm3 (4.6-6.20); Red Cell Distribution Width 14.5 % (11.5-14.5)
[2021-12-17 06:26] LABS: Alanine Aminotransferase 73 U/L (4-50); Albumin Level 2.1 g/dL (3.5-5.1); Alkaline Phosphatase 275 U/L (38-126); Anion Gap 1 mmol/L (8-16); Aspartate Amino Transferase 134 U/L (17-59); Bilirubin,Total 1.1 mg/dL (0.2-1.3); Blood Urea Nitrogen 17 mg/dL (9-20); CRP 3.7 mg/dL (<1.0); Calcium 6.9 mg/dL (8.4-10.2); Carbon Dioxide 23 mmol/L (22-30); Chloride 104 mmol/L (98-107); Estimated CRCL calculation 57 ml/min; Estimated Glomerular Filt Rate > 60; Glucose 98 mg/dL (65-110); Lactate Dehydrogenase 1752 U/L (313-618); Lipase 377 U/L (23-300); Magnesium 1.9 mg/dL (1.6-2.3); Sodium 128 mmol/L (137-145)
[2021-12-17 06:34] LABS: Erythrocyte Sedimentation Rate 16 mm/hr (0-20)
[2021-12-17 07:04] LABS: Hypochromasia 1+ (NORMAL); Platelet Estimate Decreased (Adequate)
[2021-12-17] MEDS: PANTOPRAZOLE 40 MG TABLET PO (08:13)
[2021-12-17] MEDS: POTASSIUM CITRATE 5 MEQ TAB CR 10 MEQ PO ×2 (10:53→17:19)
[2021-12-17] MEDS: ASCORBIC ACID 500 MG TABLET PO (10:53)
[2021-12-17] MEDS: OPTI-GEN TAB 1 TABLET PO (10:54)
--- NOTE | 2021-12-17 11:13 | PM.IMPN ---
Progress Note: A&P Assessment and Plan (1) Hypocalcemia: Code(s): E83.51 - Hypocalcemia Status: Acute (2) Acute cholecystitis: Code(s): K81.0 - Acute cholecystitis Status: Acute (3) Dehydration: Code(s): E86.0 - Dehydration Status: Acute (4) Pancytopenia: Code(s): D61.818 - Other pancytopenia Status: Acute (5) Hypertension: Qualifiers: Hypertension type: unspecified Qualified Code(s): I10 - Essential (primary) hypertension Code(s): I10 - Essential (primary) hypertension Status: Acute (6) Hyperlipidemia: Qualifiers: Hyperlipidemia type: unspecified Qualified Code(s): E78.5 - Hyperlipidemia, unspecified Code(s): E78.5 - Hyperlipidemia, unspecified Status: Acute (7) Generalized weakness: Code(s): R53.1 - Weakness Status: Acute (8) Transaminitis: Code(s): R74.01 - Elevation of levels of liver transaminase levels Status: Acute Additional Plan - Heightened concern for potential oncological process due to extensive lymphadenopathy within the abdominal cavity. -hematology oncology is consulted at this time in the presence of pancytopenia. -surgery has evaluated and suggests that the amount of enlarged lymph nodes present in the abdominal cavity is extensive even for cholecystitis and recommends potential biopsy need in the future. - Aerobic bottle of Blood cultures is growing Gram positive Bacilli. We are awaiting identification and sensitivity at this time. - Continue Zosyn,. -patient with transaminitis. AST and ALT are improved as compared to yesterday, and pt's Bilirubin remains normal today,. Alk phos is still elevated. -both CT of the abdomen and pelvis as well as ultrasound of the right upper quadrant are suggestive of acute cholecystitis. -surgery consult and recommends treatment with IV antibiotics versus surgery intervention. They note today that the pt. is completely asymptomatic of acute cholecystitis. -will continue to trend liver enzymes during hospitalization. -WBC's are decreased today to 3.6. Hemoglobin and hematocrit are stable at 10.8/32.4. Platelets remain even lower at 74. -etiology unknown. -heme Onc is consult for further recommendations. - Niferex and Vitamin C is ordered based upon Iron studies showing Iron of 19, TIBC of 236, and % saturations of 8. - Continue to trend labs. -continue Zosyn q.6 hours. -general surgery consulted and recommends conservative treatment with antibiotics versus surgical intervention at this time as pt. is completely asymptomatic. -Will continue to trend downward. -consider repeat imaging if worsening of clinical condition -PTOT evaluation and recommendations for rehab is made. - CK today is decreased to 416 from 2102. Inflammatory markers remain elevated. - Monitor all labs and VS and await Oncology consult. -there is been interval improvement in blood pressures. -continue IV fluids and hold oral antihypertensives. -continue to monitor vital signs, continue telemetry. - Stable BP. -hold statin in setting of transaminitis. - Serum calcium is 7.1, Albumin is 2.1. - Corrected Calcium for Albumin is 8.2. 12/17/21 cont to be intermittently febrile cont zofran and protonix for N/V per pt effective acute cholecystis asymptomtic monitoring w conservative tx for now per surgeon cont zosyn pt w RLE cellulitis on Zosyn ruled out for DVT further testing recs per surgeon Subjective Date/time seen: 12/17/21 11:13 sitting in his bed eating last BM 3 days ago takes colace at home w order. pt encouraged to eat Exam Narrative: GEN: NAD, AAOx3, cooperative HEENT: NCAT, MMM, EOMI Neck: no JVD Heart: S1S2 RRR Lungs: CTA B/l Abd: soft, NT, ND, bowel sounds normoactive Ext: moves all, no cyanosis, no clubbing, 1+ edema RLE w erythema and nonblanching deep red area Neuro: regular cognition, moves all extremities equally Psych: mood reduced, affect congruent Objective D
--- NOTE | 2021-12-17 12:55 | PM.PNGS ---
Progress Note: A&P Assessment and Plan (1) Acute cholecystitis: Code(s): K81.0 - Acute cholecystitis Status: Acute Assessment and Plan: Continues to be completely asymptomatic, tolerating a diet. Abd exam remains benign. Continue with conservative treatment with antibiotics. (2) Abdominal lymphadenopathy: Code(s): R59.0 - Localized enlarged lymph nodes Status: Acute Assessment and Plan: Unlikely this is related to the cholecystitis. Will need reimaging and possible biopsy Additional Plan I have discussed the patient's case and plan of care with Dr. Willingham. Subjective Subjective Date/Time Seen: 12/17/21 09:55 Patient reports: no new complaints, feels better, tolerating a regular diet, flatus, no bowel movement, nausea (being controlled with antiemetics, he feels it is overall improving) and afebrile Interval history: Patient seen and examined. Chart reviewed. He denies any acute changes. He feels like he is overall feeling better. Still denies any abdominal pain and feels his nausea is improving. Tolerating a diet and he states he ate more for breakfast than he has eaten in one meal for days. No other complaints at this time. Review of Systems Review of Systems: All systems reviewed & are unremarkable except as noted in HPI and below Constitutional: Constitutional: Denies fever(s) Exam Const: General: comfortable and no acute distress Orientation/consciousness: patient oriented x3 GI: Inspection: normal to inspection and non-distended GI Palp: Yes Soft to palpation, No Tenderness to palpation present (GI), No Guarding due to palpation present (GI) and No Rebound tenderness present Percussion: Yes normal to percussion Auscultation: normal bowel sounds Skin: General skin exam: normal color Extrem: General: other (mild edema and erythema of RLE, LLE normal) Psych: Insight: Good insight present (Psych) Judgement: Good judgement present (Psych) Objective Data Vital Signs Vital Signs: Vital Signs - 24 hr 12/16/21 14:00 12/16/21 16:00 12/16/21 20:00 Temperature 98.3 F Pulse Rate 99 94 96 Respiratory Rate 18 Blood Pressure 106/52 L Pulse Oximetry 96 12/16/21 22:00 12/16/21 22:17 12/17/21 00:00 Temperature 100.7 F H 100.6 F H Pulse Rate 87 84 Respiratory Rate 18 Blood Pressure 107/58 L Pulse Oximetry 96 12/17/21 04:00 12/17/21 05:51 12/17/21 08:00 Temperature 100.2 F H Pulse Rate 78 84 87 Respiratory Rate 18 Blood Pressure 106/69 Pulse Oximetry 97 Intake/Output Intake/Output: Intake & Output 12/14/21 12/15/21 12/16/21 12/17/21 23:59 23:59 23:59 23:59 Intake Total 3440 3240 2658.6 1325.4 Output Total 640 1350 550 500 Balance 2800 1890 2108.6 825.4 Meds/Results Medications: Active Medications Generic Name Dose Route Start Last Admin Trade Name Freq PRN Reason Stop Dose Admin Acetaminophen 650 mg 12/14/21 21:22 12/15/21 22:49 Acetaminophen 325 Mg Tablet PO 650 mg Q6H PRN Administration Mild Pain (1-3) or Fever Ascorbic Acid 500 mg 12/16/21 10:25 12/17/21 10:53 Ascorbic Acid 500 Mg Tablet PO 500 mg DAILY CRISTIN Administration Piperacillin/Tazobactam/Dextrose 3.375 gm in 50 mls @ 100 mls/hr 12/14/21 21:00 12/17/21 09:49 Zosyn 3.375 Gm/D5w 50ml Pm IVPB Infused Q6H CRISTIN Infusion Sodium Chloride 1,000 mls @ 100 mls/hr 12/16/21 10:25 12/17/21 02:19 Normal Saline Iv IV CONT 100 mls/hr .Q10H CRISTIN Administration Multivitamins/Minerals 1 tablet 12/15/21 09:00 12/17/21 10:54 Opti-Gen Tab PO 1 tablet DAILY CRISTIN Administration Ondansetron HCl 4 mg 12/14/21 17:43 12/17/21 08:20 Ondansetron Inj 4 Mg/2 Ml Vial IV PUSH 4 mg Q6H PRN Administration Nausea And Vomiting Pantoprazole Sodium 40 mg 12/15/21 09:00 12/17/21 08:13 Pantoprazole 40 Mg Tablet PO 40 mg QAM CRISTIN Administration Polysaccharide Iron Complex 150 mg 12/16/21 10:25 12/16/21 10:53 Arthur
[2021-12-17] MEDS: POLYSACCHARIDE IRON COMPLEX 150 MG CAPSULE PO (13:40)
--- NOTE | 2021-12-17 19:14 | PDONCCN ---
HPI - Date of Consult Date/Time: 12/17/21 19:14 Requesting Physician: JOSEPH Villalobos Primary Care Provider: Tramaine TimMD - Consult Narrative Reason for consult: Pancytopenia and lymphadenopathy Narrative: Bartolo Dent is a 76 year old male with history of prostate cancer status post radical prostatectomy in 1995. He has been in remission from prostate cancer. He came into the hospital with generalized weakness along with nausea. Patient went to the emergency department at [facility] in [place] with concern of dehydration. There was concern for viral infection as well. He had a low-grade temperature of 103? read the ER. CT scan of abdomen and pelvis showed prominent upper abdominal lymphadenopathy. CBC showed pancytopenia with WBC of 3000 and hemoglobin [place] 11[place] [address]. He denies any bleeding and bruising. He denies any fevers and chills. Denies any recent weight changes. Review of Systems - Review of Systems All systems reviewed & are unremarkable except as noted in HPI and bel - Neurologic Reports system reviewed and no additional complaints, except as documented, Reports weakness, Denies headache(s) [facility] Medical History: Medical History (Last Reviewed 12/15/21 @ 10:24 by Linda Willingham MD) Arthritis Gout Hyperlipidemia Hypertension Kidney stones Prostate cancer Surgical History: Surgical History (Last Reviewed 12/15/21 @ 10:24 by Linda Willingham MD) History of appendectomy History of arthroplasty of right knee History of inguinal hernia repair History of prostatectomy Onset Date: 2015 History of tonsillectomy Family History: Family History (Last Reviewed 12/15/21 @ 10:24 by Linda Willingham MD) Father Colon cancer Cerebrovascular accident Other Congestive heart failure - Social History Social History: Social History (Last Reviewed 12/15/21 @ 10:24 by Linda Willingham MD) Alcohol Use: Alcohol intake: never Substance Use: Substance use: never Substance use type: does not use Others: Spiritual care concerns: No Smoking Status: Smoking status: Never smoker Meds Home Medications Medication Instructions Recorded Confirmed Type Adult Low Dose Aspirin 81 mg BYMOUTH QID 12/14/21 12/14/21 History lansoprazole [Prevacid 24Hr] 15 mg PO DAILY 12/14/21 12/14/21 History metoprolol tartrate 50 mg PO DAILY 12/14/21 12/14/21 History gbneqcyy-oyw-QS-lycopen-lutein 1 tablet PO DAILY 12/14/21 12/14/21 History [Centrum Silver Men] potassium citrate 10 meq PO BID 12/14/21 12/14/21 History pravastatin 20 mg PO DAILY 12/14/21 12/14/21 History Allergies Allergy/AdvReac Type Severity Reaction Status Date / Time No Known Allergies Allergy Unverified 12/14/21 09:07 Results - Labs CBC & Chem 7: 12/17/21 05:36 12/17/21 05:36 Labs: Short CBC 12/17/21 Range/Units 05:36 WBC 3.0 L (4.5-10.0) K/mm3 Hgb 11.1 L (14.0-18.0) g/dL Hct 32.9 L (42.0-52.0) % Plt Count 72 L (150-375) k/mm3 BMP 12/17/21 05:36 Sodium 128 L Potassium 4.0 Chloride 104 Carbon Dioxide 23 BUN 17 Creatinine 0.90 Glucose 98 Calcium 6.9 L Liver Function 12/17/21 Range/Units 05:36 Total Bilirubin 1.1 (0.2-1.3) mg/dL AST 134 H (17-59) U/L ALT 73 H (4-50) U/L Alkaline Phosphatase 275 H (38-126) U/L Albumin 2.1 L (3.5-5.1) g/dL Assessment and Plan - Additional Plan Pancytopenia and upper abdominal lymphadenopathy. This is a pleasant 76-year-old male with history of prostate cancer status post prostatectomy in 1995. He has been in remission since then. Patient came into the hospital with generalized weakness along with nausea and low-grade fever. CT abdomen and pelvis showed prominent upper abdominal lymphadenopathy including gastrohepatic, periportal and superior armin aortic, aortocaval and paracaval location considering lymphoma
[2021-12-18] VITALS (13 sets, daily range): BP systolic 105–131; BP diastolic 68–75; PULSE 76–113; RESP 12–24; TEMP 36.8–37.7; O2SAT 97–100
[2021-12-18] MEDS: SODIUM CHLORIDE 0.9% IV 1,000 ML 100 ML IV CONT ×2 (02:38→15:34)
[2021-12-18] MEDS: ONDANSETRON INJ 4 MG/2 ML VIAL IV PUSH ×2 (06:21→19:17)
[2021-12-18 06:38] LABS: Basophils Percent Auto 0.7 % (0.2-1.2); Hematocrit 32.5 % (42.0-52.0); Hemoglobin 11.5 g/dL (14.0-18.0); Immature Granulocyte Absolute 0.04 K/mm3 (0.00-0.031); Immature Granulocyte Percent A 1.5 % (0-0.5); Immature Platelet Fraction Pct 6.8 % (0.9-11.2); Lymphocytes Absolute Auto 0.91 K/mm3 (0.9-3.2); Lymphocytes Percent Auto 33.2 % (18.3-44.2); Mean Corpuscular HGB Conc 35.4 g/dl (32-36); Mean Corpuscular Hemoglobin 29.6 pg (26-34); Mean Corpuscular Volume 83.8 fl (80-100); Mean Platelet Volume 11.8 fl (7.4-10.4); Monocytes Absolute Auto 0.3 K/mm3 (0.1-0.6); Monocytes Percent Auto 9.1 % (2.6-8.5); Neutrophils Absolute Auto 1.5 K/mm3 (1.3-6.7); Neutrophils Percent Auto 55.5 % (45.5-73.1); Platelet Count Result 67 k/mm3 (150-375); Red Blood Count 3.88 M/mm3 (4.6-6.20); Red Cell Distribution Width 14.2 % (11.5-14.5); White Blood Count 2.7 K/mm3 (4.5-10.0)
[2021-12-18 06:56] LABS: Alanine Aminotransferase 94 U/L (4-50); Albumin Level 2.2 g/dL (3.5-5.1); Alkaline Phosphatase 364 U/L (38-126); Anion Gap 1 mmol/L (8-16); Aspartate Amino Transferase 161 U/L (17-59); Bilirubin,Total 1.1 mg/dL (0.2-1.3); Blood Urea Nitrogen 15 mg/dL (9-20); CRP 2.5 mg/dL (<1.0); Carbon Dioxide 21 mmol/L (22-30); Chloride 104 mmol/L (98-107); Estimated CRCL calculation 57 ml/min; Estimated Glomerular Filt Rate > 60; Glucose 93 mg/dL (65-110); Lactate Dehydrogenase 1683 U/L (313-618); Lipase 462 U/L (23-300); Magnesium 1.9 mg/dL (1.6-2.3); Potassium 4.1 mmol/L (3.4-5.0); Sodium 126 mmol/L (137-145)
--- NOTE | 2021-12-18 10:35 | PC.NURSE ---
To [facility] for bone biopsy via bed.
--- NOTE | 2021-12-18 11:00 | PCPTNOTE ---
The patient treatment was not able to be completed due to patient out of room for Biopsy. Will plan to continue treatment per plan of care.
--- NOTE | 2021-12-18 11:07 | WPDMODSED ---
Moderate Sedation Note-Pt Data Patient Data Allergies Allergy/AdvReac Type Severity Reaction Status Date / Time No Known Allergies Allergy Unverified 12/14/21 09:07 Home Medications Medication Instructions Recorded Confirmed Type Adult Low Dose Aspirin 81 mg BYMOUTH QID 12/14/21 12/14/21 History lansoprazole [Prevacid 24Hr] 15 mg PO DAILY 12/14/21 12/14/21 History metoprolol tartrate 50 mg PO DAILY 12/14/21 12/14/21 History kgxmxvzz-lji-MH-lycopen-lutein 1 tablet PO DAILY 12/14/21 12/14/21 History [Centrum Silver Men] potassium citrate 10 meq PO BID 12/14/21 12/14/21 History pravastatin 20 mg PO DAILY 12/14/21 12/14/21 History Current Medications: Active Medications Acetaminophen (Acetaminophen 325 Mg Tablet) 650 mg PO Q6H PRN PRN Reason: Mild Pain (1-3) or Fever Last Admin: 12/15/21 22:49 Dose: 650 mg Documented by: Ascorbic Acid (Ascorbic Acid 500 Mg Tablet) 500 mg PO DAILY [facility] Last Admin: 12/17/21 10:53 Dose: 500 mg Documented by: Piperacillin/Tazobactam/Dextrose (Zosyn 3.375 Gm/D5w 50ml Pm) 3.375 gm in 50 mls @ 100 mls/hr IVPB Q6H [facility] Last Infusion: 12/18/21 09:06 Dose: Infused Documented by: Sodium Chloride (Normal Saline Iv) 1,000 mls @ 100 mls/hr IV CONT .Q10H [facility] Last Admin: 12/18/21 02:38 Dose: 100 mls/hr Documented by: Multivitamins/Minerals (Opti-Gen Tab) 1 tablet PO DAILY [facility] Last Admin: 12/17/21 10:54 Dose: 1 tablet Documented by: Neomycin/Polymyxin/Bacitracin (Neomycin/Polymyxin/Bacitracin Ointment 15 Gm Tube) 1 applic TOPICAL PRN PRN PRN Reason: with dressing changes Ondansetron HCl (Ondansetron Inj 4 Mg/2 Ml Vial) 4 mg IV PUSH Q6H PRN PRN Reason: Nausea And Vomiting Last Admin: 12/18/21 06:21 Dose: 4 mg Documented by: Pantoprazole Sodium (Pantoprazole 40 Mg Tablet) 40 mg PO QAM [facility] Last Admin: 12/17/21 08:13 Dose: 40 mg Documented by: Polysaccharide Iron Complex (Polysaccharide Iron Complex 150 Mg Capsule) 150 mg PO DAILY@0800 [facility] Last Admin: 12/17/21 13:40 Dose: 150 mg Documented by: Potassium Citrate (Potassium Citrate 5 Meq Tab Cr) 10 meq PO BID [facility] Last Admin: 12/17/21 17:19 Dose: 10 meq Documented by: Sedation/Anesthesia: No previous sedation/anesthesia problems (including family history). [facility] Past Medical History Medical History Arthritis Gout Hyperlipidemia Hypertension Kidney stones Prostate cancer Surgical History Surgical History History of appendectomy History of arthroplasty of right knee History of inguinal hernia repair History of prostatectomy (2015) History of tonsillectomy Family History Family History Father Colon cancer Cerebrovascular accident Other Congestive heart failure Social History Social History Social History: Surrogate decision maker: Elida Bautista, sibling or Wilian Bautista, [id number]. Code status: Full code. Smoking status: Never smoker Alcohol intake: never Substance use: never Substance use type: does not use Additional living arrangements comments: The patient is and lives in [place]. He has no children. Additional occupation/education comments: Retired pharmacist. Spiritual care concerns: No Mod Sed Physical Exam Physical Exam Pre Procedural Exam: Normal: Appearance, Lungs, Heart Rate and Heart Rhythm Hours since solid foods: 12 Hours since liquid intake: 12 Mallampati Classification: class III Internal Medicine - PN: Obj Da Vital Signs Vital Signs: Vital Signs - 24 hr 12/17/21 12:00 12/17/21 14:00 12/17/21 16:00 Temperature 99.8 F H Pulse Rate 97 94 94 Respiratory Rate 16 Blood Pressure 110/68 Pulse Oximetry 98 12/17/21 20:00 12/17/21 22:00 12/18/21 00:00 Temperature 99.4 F Pulse Rate 97 99 81 Respiratory Rate 18
--- NOTE | 2021-12-18 11:30 | PC.NURSE ---
Back from cardiac lab via bed.
--- NOTE | 2021-12-18 12:18 | PCOTNOTE ---
Patient in biopsy earlier this AM. Patient not seen for OT this date.
[2021-12-18] MEDS: OPTI-GEN TAB 1 TABLET PO (12:23)
[2021-12-18] MEDS: POTASSIUM CITRATE 5 MEQ TAB CR 10 MEQ PO ×2 (12:24→21:14)
[2021-12-18] MEDS: POLYSACCHARIDE IRON COMPLEX 150 MG CAPSULE PO (12:24)
[2021-12-18] MEDS: ASCORBIC ACID 500 MG TABLET PO (12:24)
[2021-12-18] MEDS: PANTOPRAZOLE 40 MG TABLET PO (12:24)
--- NOTE | 2021-12-18 14:26 | PC.NURSE ---
On 12/18/21, the student, Madelin Concepcion, provided care and completed [facility] documentation on this patient. I have reviewed the student's documentation and agree with the findings.
--- NOTE | 2021-12-18 14:41 | PM.IMPN ---
Progress Note: A&P Assessment and Plan (1) Hypocalcemia: Code(s): E83.51 - Hypocalcemia Status: Acute (2) Acute cholecystitis: Code(s): K81.0 - Acute cholecystitis Status: Acute (3) Dehydration: Code(s): E86.0 - Dehydration Status: Acute (4) Pancytopenia: Code(s): D61.818 - Other pancytopenia Status: Acute (5) Hypertension: Qualifiers: Hypertension type: unspecified Qualified Code(s): I10 - Essential (primary) hypertension Code(s): I10 - Essential (primary) hypertension Status: Acute (6) Hyperlipidemia: Qualifiers: Hyperlipidemia type: unspecified Qualified Code(s): E78.5 - Hyperlipidemia, unspecified Code(s): E78.5 - Hyperlipidemia, unspecified Status: Acute (7) Generalized weakness: Code(s): R53.1 - Weakness Status: Acute (8) Transaminitis: Code(s): R74.01 - Elevation of levels of liver transaminase levels Status: Acute Additional Plan - Heightened concern for potential oncological process due to extensive lymphadenopathy within the abdominal cavity. -hematology oncology is consulted at this time in the presence of pancytopenia. -surgery has evaluated and suggests that the amount of enlarged lymph nodes present in the abdominal cavity is extensive even for cholecystitis and recommends potential biopsy need in the future. - Aerobic bottle of Blood cultures is growing Gram positive Bacilli. We are awaiting identification and sensitivity at this time. - Continue Zosyn,. -patient with transaminitis. AST and ALT are improved as compared to yesterday, and pt's Bilirubin remains normal today,. Alk phos is still elevated. -both CT of the abdomen and pelvis as well as ultrasound of the right upper quadrant are suggestive of acute cholecystitis. -surgery consult and recommends treatment with IV antibiotics versus surgery intervention. They note today that the pt. is completely asymptomatic of acute cholecystitis. -will continue to trend liver enzymes during hospitalization. -WBC's are decreased today to 3.6. Hemoglobin and hematocrit are stable at 10.8/32.4. Platelets remain even lower at 74. -etiology unknown. -heme Onc is consult for further recommendations. - Niferex and Vitamin C is ordered based upon Iron studies showing Iron of 19, TIBC of 236, and % saturations of 8. - Continue to trend labs. -continue Zosyn q.6 hours. -general surgery consulted and recommends conservative treatment with antibiotics versus surgical intervention at this time as pt. is completely asymptomatic. -Will continue to trend downward. -consider repeat imaging if worsening of clinical condition -PTOT evaluation and recommendations for rehab is made. - CK today is decreased to 416 from 2102. Inflammatory markers remain elevated. - Monitor all labs and VS and await Oncology consult. -there is been interval improvement in blood pressures. -continue IV fluids and hold oral antihypertensives. -continue to monitor vital signs, continue telemetry. - Stable BP. -hold statin in setting of transaminitis. - Serum calcium is 7.1, Albumin is 2.1. - Corrected Calcium for Albumin is 8.2. 12/17/21 cont to be intermittently febrile cont zofran and protonix for N/V per pt effective acute cholecystis asymptomtic monitoring w conservative tx for now per surgeon cont zosyn pt w RLE cellulitis on Zosyn ruled out for DVT further testing recs per surgeon 12/18/21 labs looks ok but clinically cellulitis looks worse today will restart vanco and monitor for 24hrs bx today without complication cont supportive care Subjective Date/time seen: 12/18/21 14:41 pt seen s/p biopsy doing ok RLE w worsening redness and pain per pt Exam Narrative: GEN: NAD, AAOx3, cooperative HEENT: NCAT, MMM, EOMI Neck: no JVD Heart: S1S2 RRR Lungs: CTA B/l Abd: soft, NT, ND, bowel sounds normoactive Ext: moves all, no cyanosis, no clubbing, 1+ edema RLE w erythema an
[2021-12-18 16:35] LABS: Albumin 2.5 g/dL (3.8-4.8); Alpha 1 Globulin 0.4 g/dL (0.2-0.3); Alpha 2 Globulin 0.5 g/dL (0.5-0.9); Beta 1 Globulin 0.3 g/dL (0.4-0.6); Gamma Globulin 0.9 g/dL (0.8-1.7); Protein, Total 4.7 g/dL (6.1-8.1)
[2021-12-19] VITALS (11 sets, daily range): BP systolic 108–120; BP diastolic 65–74; PULSE 69–104; RESP 16–18; TEMP 36.4–38.8; O2SAT 95–99
[2021-12-19] MEDS: SODIUM CHLORIDE 0.9% IV 1,000 ML 100 ML IV CONT ×2 (02:28→17:08)
[2021-12-19] MEDS: ONDANSETRON INJ 4 MG/2 ML VIAL IV PUSH ×2 (02:28→20:17)
[2021-12-19] MEDS: ACETAMINOPHEN 325 MG TABLET 650 MG PO (05:52)
[2021-12-19] MEDS: POLYSACCHARIDE IRON COMPLEX 150 MG CAPSULE PO (09:00)
[2021-12-19] MEDS: PANTOPRAZOLE 40 MG TABLET PO (09:00)
[2021-12-19] MEDS: ASCORBIC ACID 500 MG TABLET PO (09:00)
[2021-12-19] MEDS: OPTI-GEN TAB 1 TABLET PO (09:00)
[2021-12-19] MEDS: POTASSIUM CITRATE 5 MEQ TAB CR 10 MEQ PO ×2 (09:00→16:11)
--- NOTE | 2021-12-19 10:34 | PM.PNGS ---
Progress Note: A&P Assessment and Plan (1) Acute cholecystitis: Code(s): K81.0 - Acute cholecystitis Status: Acute Assessment and Plan: exam benign, donnie diet, no acute surgical issues, will s/o call c ?s, issues (2) Abdominal lymphadenopathy: Code(s): R59.0 - Localized enlarged lymph nodes Status: Acute Assessment and Plan: s/p bx, await path, oncology following Subjective Subjective Date/Time Seen: 12/19/21 10:34 no acute issues, pt reports slow progression of weakness, denies any abdominal pain, donnie diet Review of Systems Review of Systems: All systems reviewed & are unremarkable except as noted in HPI and below Exam Const: General: cooperative, comfortable and no acute distress Resp: Auscultation: clear to auscultation bilaterally Cardio: Rate: regular rate Rhythm: regular rhythm GI: Inspection: normal to inspection and non-distended GI Palp: No abdominal tenderness, Yes Soft to palpation and No Tenderness to palpation present (GI) Objective Data Vital Signs Vital Signs: Vital Signs - 24 hr 12/18/21 11:00 12/18/21 11:09 12/18/21 11:15 Temperature Pulse Rate 80 80 79 Respiratory Rate 20 14 12 Blood Pressure 120/71 119/70 107/68 Pulse Oximetry 100 100 100 12/18/21 12:00 12/18/21 14:00 12/18/21 16:16 Temperature 37.1 C Pulse Rate 76 83 113 H Respiratory Rate 18 Blood Pressure 122/75 Pulse Oximetry 99 12/18/21 20:00 12/18/21 22:00 12/19/21 00:00 Temperature 37.7 C H Pulse Rate 99 98 83 Respiratory Rate 20 Blood Pressure 131/73 Pulse Oximetry 98 12/19/21 04:00 12/19/21 05:41 12/19/21 05:52 Temperature 38.8 C H 37.8 C H Pulse Rate 84 86 Respiratory Rate 18 Blood Pressure 120/72 Pulse Oximetry 95 12/19/21 06:52 Temperature 36.8 C Pulse Rate Respiratory Rate Blood Pressure Pulse Oximetry Intake/Output Intake/Output: Intake & Output 12/16/21 12/17/21 12/18/21 12/19/21 23:59 23:59 23:59 23:59 Intake Total 2658.6 4905.4 1840 1300 Output Total 550 900 600 500 Balance 2108.6 4005.4 1240 800 Meds/Results Medications: Active Medications Generic Name Dose Route Start Last Admin Trade Name Gabrielq PRN Reason Stop Dose Admin Acetaminophen 650 mg 12/14/21 21:22 12/19/21 05:52 Acetaminophen 325 Mg Tablet PO 650 mg Q6H PRN Administration Mild Pain (1-3) or Fever Ascorbic Acid 500 mg 12/16/21 10:25 12/19/21 09:00 Ascorbic Acid 500 Mg Tablet PO 500 mg DAILY [facility] Administration Piperacillin/Tazobactam/Dextrose 3.375 gm in 50 mls @ 100 mls/hr 12/14/21 21:00 12/19/21 09:05 Zosyn 3.375 Gm/D5w 50ml Pm IVPB 100 mls/hr Q6H [facility] Administration Sodium Chloride 1,000 mls @ 100 mls/hr 12/16/21 10:25 12/19/21 02:28 Normal Saline Iv IV CONT 100 mls/hr .Q10H [facility] Administration Multivitamins/Minerals 1 tablet 12/15/21 09:00 12/19/21 09:00 Opti-Gen Tab PO 1 tablet DAILY [facility] Administration Neomycin/Polymyxin/Bacitracin 1 applic 12/17/21 17:19 Neomycin/Polymyxin/Bacitracin Ointment 15 Gm Tube TOPICAL PRN PRN with dressing changes Ondansetron HCl 4 mg 12/14/21 17:43 12/19/21 02:28 Ondansetron Inj 4 Mg/2 Ml Vial IV PUSH 4 mg Q6H PRN Administration Nausea And Vomiting Pantoprazole Sodium 40 mg 12/15/21 09:00 12/19/21 09:00 Pantoprazole 40 Mg Tablet PO 40 mg QAM [facility] Administration Polysaccharide Iron Complex 150 mg 12/16/21 10:25 12/19/21 09:00 Polysaccharide Iron Complex 150 Mg Capsule PO 150 mg DAILY@0800 [facility] Administration Potassium Citrate 10 meq 12/14/21 17:00 12/19/21 09:00 Potassium Citrate 5 Meq Tab Cr PO 10 meq BID [facility] Administration Radiology Results: ITS Impressions Chest X-Ray 12/14/21 09:27 IMPRESSION: No active cardiopulmonary disease Aortic calcification and tortuosity Abdomen/Pelvis CT 12/14/21 10:35 IMPRESSION: Prominent upper abdominal lymphadenopathy including g
--- NOTE | 2021-12-19 17:47 | PM.IMPN ---
Progress Note: A&P Assessment and Plan (1) Hypocalcemia: Code(s): E83.51 - Hypocalcemia Status: Acute (2) Acute cholecystitis: Code(s): K81.0 - Acute cholecystitis Status: Acute (3) Dehydration: Code(s): E86.0 - Dehydration Status: Acute (4) Pancytopenia: Code(s): D61.818 - Other pancytopenia Status: Acute (5) Hypertension: Qualifiers: Hypertension type: unspecified Qualified Code(s): I10 - Essential (primary) hypertension Code(s): I10 - Essential (primary) hypertension Status: Acute (6) Hyperlipidemia: Qualifiers: Hyperlipidemia type: unspecified Qualified Code(s): E78.5 - Hyperlipidemia, unspecified Code(s): E78.5 - Hyperlipidemia, unspecified Status: Acute (7) Generalized weakness: Code(s): R53.1 - Weakness Status: Acute (8) Transaminitis: Code(s): R74.01 - Elevation of levels of liver transaminase levels Status: Acute Additional Plan - Heightened concern for potential oncological process due to extensive lymphadenopathy within the abdominal cavity. -hematology oncology is consulted at this time in the presence of pancytopenia. -surgery has evaluated and suggests that the amount of enlarged lymph nodes present in the abdominal cavity is extensive even for cholecystitis and recommends potential biopsy need in the future. - Aerobic bottle of Blood cultures is growing Gram positive Bacilli. We are awaiting identification and sensitivity at this time. - Continue Zosyn,. -patient with transaminitis. AST and ALT are improved as compared to yesterday, and pt's Bilirubin remains normal today,. Alk phos is still elevated. -both CT of the abdomen and pelvis as well as ultrasound of the right upper quadrant are suggestive of acute cholecystitis. -surgery consult and recommends treatment with IV antibiotics versus surgery intervention. They note today that the pt. is completely asymptomatic of acute cholecystitis. -will continue to trend liver enzymes during hospitalization. -WBC's are decreased today to 3.6. Hemoglobin and hematocrit are stable at 10.8/32.4. Platelets remain even lower at 74. -etiology unknown. -heme Onc is consult for further recommendations. - Niferex and Vitamin C is ordered based upon Iron studies showing Iron of 19, TIBC of 236, and % saturations of 8. - Continue to trend labs. -continue Zosyn q.6 hours. -general surgery consulted and recommends conservative treatment with antibiotics versus surgical intervention at this time as pt. is completely asymptomatic. -Will continue to trend downward. -consider repeat imaging if worsening of clinical condition -PTOT evaluation and recommendations for rehab is made. - CK today is decreased to 416 from 2101. Inflammatory markers remain elevated. - Monitor all labs and VS and await Oncology consult. -there is been interval improvement in blood pressures. -continue IV fluids and hold oral antihypertensives. -continue to monitor vital signs, continue telemetry. - Stable BP. -hold statin in setting of transaminitis. - Serum calcium is 7.1, Albumin is 2.1. - Corrected Calcium for Albumin is 8.2. 12/17/21 cont to be intermittently febrile cont zofran and protonix for N/V per pt effective acute cholecystis asymptomtic monitoring w conservative tx for now per surgeon cont zosyn pt w RLE cellulitis on Zosyn ruled out for DVT further testing recs per surgeon 12/18/21 labs looks ok but clinically cellulitis looks worse today will restart vanco and monitor for 24hrs bx today without complication cont supportive care 12/19/21 cellulitis significantly improved today cont current care anticipate dc when 24hours afebrile pancytopenia, procal sent and serial CRP ordered Subjective Date/time seen: 12/19/21 17:47 back on vanco febrile overnight but RLE looking better pt without new complaints Exam Narrative: GEN: NAD, AAOx3, cooperative HEENT: NCAT
[2021-12-19 19:53] LABS: Procalcitonin 0.5 ng/mL
[2021-12-20] VITALS (9 sets, daily range): BP systolic 106–125; BP diastolic 65–74; PULSE 79–111; RESP 16–20; TEMP 36.9–38.2; O2SAT 95–98
[2021-12-20] MEDS: SODIUM CHLORIDE 0.9% IV 1,000 ML 100 ML IV CONT ×2 (05:09→20:00)
[2021-12-20 07:33] LABS: CRP 1.8 mg/dL (<1.0)
[2021-12-20] MEDS: POTASSIUM CITRATE 5 MEQ TAB CR 10 MEQ PO ×2 (09:19→17:29)
[2021-12-20] MEDS: OPTI-GEN TAB 1 TABLET PO (09:19)
[2021-12-20] MEDS: POLYSACCHARIDE IRON COMPLEX 150 MG CAPSULE PO (09:21)
[2021-12-20] MEDS: PANTOPRAZOLE 40 MG TABLET PO (09:21)
[2021-12-20] MEDS: ASCORBIC ACID 500 MG TABLET PO (09:21)
--- NOTE | 2021-12-20 16:20 | P.PNIM_ITS ---
Progress Note: A&P Assessment and Plan (1) Hypocalcemia: Code(s): E83.51 - Hypocalcemia Status: Acute (2) Acute cholecystitis: Code(s): K81.0 - Acute cholecystitis Status: Acute (3) Dehydration: Code(s): E86.0 - Dehydration Status: Acute (4) Pancytopenia: Code(s): D61.818 - Other pancytopenia Status: Acute (5) Hypertension: Qualifiers: Hypertension type: unspecified Qualified Code(s): I10 - Essential (primary) hypertension Code(s): I10 - Essential (primary) hypertension Status: Acute (6) Hyperlipidemia: Qualifiers: Hyperlipidemia type: unspecified Qualified Code(s): E78.5 - Hyperlipidemia, unspecified Code(s): E78.5 - Hyperlipidemia, unspecified Status: Acute (7) Generalized weakness: Code(s): R53.1 - Weakness Status: Acute (8) Transaminitis: Code(s): R74.01 - Elevation of levels of liver transaminase levels Status: Acute Additional Plan - Heightened concern for potential oncological process due to extensive lymphadenopathy within the abdominal cavity. -hematology oncology is consulted at this time in the presence of pancytopenia. -surgery has evaluated and suggests that the amount of enlarged lymph nodes present in the abdominal cavity is extensive even for cholecystitis and recommends potential biopsy need in the future. - Aerobic bottle of Blood cultures is growing Gram positive Bacilli. We are awaiting identification and sensitivity at this time. - Continue Zosyn,. -patient with transaminitis. AST and ALT are improved as compared to yesterday, and pt's Bilirubin remains normal today,. Alk phos is still elevated. -both CT of the abdomen and pelvis as well as ultrasound of the right upper quadrant are suggestive of acute cholecystitis. -surgery consult and recommends treatment with IV antibiotics versus surgery intervention. They note today that the pt. is completely asymptomatic of acute cholecystitis. -will continue to trend liver enzymes during hospitalization. -WBC's are decreased today to 3.6. Hemoglobin and hematocrit are stable at 10.8/32.4. Platelets remain even lower at 74. -etiology unknown. -heme Onc is consult for further recommendations. - Niferex and Vitamin C is ordered based upon Iron studies showing Iron of 19, TIBC of 236, and % saturations of 8. - Continue to trend labs. -continue Zosyn q.6 hours. -general surgery consulted and recommends conservative treatment with antibiotics versus surgical intervention at this time as pt. is completely a symptomatic. -Will continue to trend downward. -consider repeat imaging if worsening of clinical condition -PTOT evaluation and recommendations for rehab is made. - CK today is decreased to 416 from 2102. Inflammatory markers remain elevated. - Monitor all labs and VS and await Oncology consult. -there is been interval improvement in blood pressures. -continue IV fluids and hold oral antihypertensives. -continue to monitor vital signs, continue telemetry. - Stable BP. -hold statin in setting of transaminitis. - Serum calcium is 7.1, Albumin is 2.1. - Corrected Calcium for Albumin is 8.2. 12/17/21 cont to be intermittently febrile cont zofran and protonix for N/V per pt effective acute cholecystis asymptomtic monitoring w conservative tx for now per surgeon cont zosyn pt w RLE cellulitis on Zosyn ruled out for DVT further testing recs per surgeon 12/18/21 labs looks ok but clinically cellulitis looks worse today will restart vanco and monitor for 24hrs bx today without complication
--- NOTE | 2021-12-20 16:21 | PCNFU ---
Nutrition Follow-Up Complete: Inadequate oral intake R/T poor PO intake AEB report of decreased appetite Goal: Pt to meet >50% of estimated nutritional needs Pt is progressing towards goal. Continue with current goal at this time. Pt current nutrition is Low Fat Diet and Dietary Supplements Last recorded weight is 83.2 kg, stable. Bowel Motility: +BM reported 12/17/21 Labs Reviewed: Hgb 11.5, Hct 32.5, Alb 2.2, Na 126, Ca 7.0, LDH 1683, Lipase 462, ALT 94, ALP 364, C-reactive Protein 1.8 Meds Noted: Vitamin C, Ocuvite, Protonix, Zosyn, Niferex-150, Potassium Citrate Skin: Blister - right lower leg Additional Notes: Pt diet switched from Regular to Low Fat. Reported intake is 50% x3, 75%, and 25%. Pt is receiving dietary supplement of Ensure Compact BID providing an additional 220kcal and 9g of protein per shake. Continue to encouraged intake of diet and dietary supplements. Agree with diet order at this time. Will continue to follow. Will monitor labs, medication, wt, and reported intake every 5 days
[2021-12-21] VITALS (9 sets, daily range): BP systolic 113–125; BP diastolic 64–77; PULSE 75–114; RESP 15–20; TEMP 36.9–37.3; O2SAT 95–100
[2021-12-21] MEDS: SODIUM CHLORIDE 0.9% IV 1,000 ML 100 ML IV CONT ×2 (07:44→22:08)
[2021-12-21] MEDS: ONDANSETRON INJ 4 MG/2 ML VIAL IV PUSH ×2 (07:48→15:47)
[2021-12-21] MEDS: PANTOPRAZOLE 40 MG TABLET PO (08:11)
[2021-12-21] MEDS: OPTI-GEN TAB 1 TABLET PO (08:11)
[2021-12-21] MEDS: POTASSIUM CITRATE 5 MEQ TAB CR 10 MEQ PO ×2 (08:11→17:13)
[2021-12-21] MEDS: ASCORBIC ACID 500 MG TABLET PO (08:11)
[2021-12-21] MEDS: POLYSACCHARIDE IRON COMPLEX 150 MG CAPSULE PO (08:11)
[2021-12-21 22:56] LABS: PSA, Free 0.01 ng/mL; PSA, Total <0.1 ng/mL (<=4.0)
[2021-12-22] VITALS (10 sets, daily range): BP systolic 109–122; BP diastolic 66–75; PULSE 82–108; RESP 16–18; TEMP 36.6–38.2; O2SAT 95–100
[2021-12-22] MEDS: ONDANSETRON INJ 4 MG/2 ML VIAL IV PUSH ×2 (03:44→22:13)
[2021-12-22] MEDS: SODIUM CHLORIDE 0.9% IV 1,000 ML 100 ML IV CONT ×2 (07:39→14:23)
[2021-12-22] MEDS: OPTI-GEN TAB 1 TABLET PO (08:24)
[2021-12-22] MEDS: PANTOPRAZOLE 40 MG TABLET PO (08:24)
[2021-12-22] MEDS: ASCORBIC ACID 500 MG TABLET PO (08:24)
[2021-12-22] MEDS: POLYSACCHARIDE IRON COMPLEX 150 MG CAPSULE PO (08:24)
[2021-12-22] MEDS: POTASSIUM CITRATE 5 MEQ TAB CR 10 MEQ PO ×2 (08:24→18:27)
[2021-12-22] MEDS: ACETAMINOPHEN 325 MG TABLET 650 MG PO (14:28)
[2021-12-23] VITALS (9 sets, daily range): BP systolic 104–118; BP diastolic 69–70; PULSE 96–117; RESP 18; TEMP 36.9–37.8; O2SAT 96–98
[2021-12-23 06:36] LABS: Basophils Percent Auto 0.6 % (0.2-1.2); Hematocrit 35.9 % (42.0-52.0); Hemoglobin 12.1 g/dL (14.0-18.0); Immature Granulocyte Absolute 0.05 K/mm3 (0.00-0.031); Immature Granulocyte Percent A 1.4 % (0-0.5); Immature Platelet Fraction Pct 7.4 % (0.9-11.2); Lymphocytes Absolute Auto 0.97 K/mm3 (0.9-3.2); Lymphocytes Percent Auto 27.6 % (18.3-44.2); Mean Corpuscular HGB Conc 33.7 g/dl (32-36); Mean Corpuscular Hemoglobin 29.1 pg (26-34); Mean Corpuscular Volume 86.3 fl (80-100); Mean Platelet Volume 11.3 fl (7.4-10.4); Monocytes Absolute Auto 0.2 K/mm3 (0.1-0.6); Monocytes Percent Auto 6.5 % (2.6-8.5); Neutrophils Absolute Auto 2.3 K/mm3 (1.3-6.7); Neutrophils Percent Auto 63.9 % (45.5-73.1); Platelet Count Result 77 k/mm3 (150-375); Red Blood Count 4.16 M/mm3 (4.6-6.20); Red Cell Distribution Width 14.8 % (11.5-14.5); White Blood Count 3.5 K/mm3 (4.5-10.0)
[2021-12-23 06:43] LABS: Alanine Aminotransferase 93 U/L (6-50); Albumin Level 2.4 g/dL (3.5-5.1); Alkaline Phosphatase 566 U/L (38-126); Anion Gap 3 mmol/L (8-16); Aspartate Amino Transferase 117 U/L (17-59); Bilirubin,Total 1.3 mg/dL (0.2-1.3); Blood Urea Nitrogen 14 mg/dL (9-20); Calcium 7.3 mg/dL (8.4-10.2); Carbon Dioxide 23 mmol/L (22-30); Chloride 100 mmol/L (98-107); Estimated CRCL calculation 52 ml/min; Estimated Glomerular Filt Rate > 60; Glucose 88 mg/dL (65-110); Magnesium 1.9 mg/dL (1.6-2.3); Potassium 4.1 mmol/L (3.4-5.0); Sodium 126 mmol/L (137-145)
[2021-12-23] MEDS: POTASSIUM CITRATE 5 MEQ TAB CR 10 MEQ PO ×2 (09:25→17:44)
[2021-12-23] MEDS: PANTOPRAZOLE 40 MG TABLET PO (09:25)
[2021-12-23] MEDS: ASCORBIC ACID 500 MG TABLET PO (09:25)
[2021-12-23] MEDS: OPTI-GEN TAB 1 TABLET PO (09:25)
[2021-12-23] MEDS: POLYSACCHARIDE IRON COMPLEX 150 MG CAPSULE PO (09:25)
--- NOTE | 2021-12-23 13:45 | PM.IMPN ---
Progress Note: A&P Assessment and Plan (1) Hypocalcemia: Code(s): E83.51 - Hypocalcemia Status: Acute (2) Acute cholecystitis: Code(s): K81.0 - Acute cholecystitis Status: Acute (3) Dehydration: Code(s): E86.0 - Dehydration Status: Acute (4) Pancytopenia: Code(s): D61.818 - Other pancytopenia Status: Acute (5) Hypertension: Qualifiers: Hypertension type: unspecified Qualified Code(s): I10 - Essential (primary) hypertension Code(s): I10 - Essential (primary) hypertension Status: Acute (6) Hyperlipidemia: Qualifiers: Hyperlipidemia type: unspecified Qualified Code(s): E78.5 - Hyperlipidemia, unspecified Code(s): E78.5 - Hyperlipidemia, unspecified Status: Acute (7) Generalized weakness: Code(s): R53.1 - Weakness Status: Acute (8) Transaminitis: Code(s): R74.01 - Elevation of levels of liver transaminase levels Status: Acute Additional Plan - Heightened concern for potential oncological process due to extensive lymphadenopathy within the abdominal cavity. -hematology oncology is consulted at this time in the presence of pancytopenia. -surgery has evaluated and suggests that the amount of enlarged lymph nodes present in the abdominal cavity is extensive even for cholecystitis and recommends potential biopsy need in the future. - Aerobic bottle of Blood cultures is growing Gram positive Bacilli. We are awaiting identification and sensitivity at this time. - Continue Zosyn,. -patient with transaminitis. AST and ALT are improved as compared to yesterday, and pt's Bilirubin remains normal today,. Alk phos is still elevated. -both CT of the abdomen and pelvis as well as ultrasound of the right upper quadrant are suggestive of acute cholecystitis. -surgery consult and recommends treatment with IV antibiotics versus surgery intervention. They note today that the pt. is completely asymptomatic of acute cholecystitis. -will continue to trend liver enzymes during hospitalization. -WBC's are decreased today to 3.6. Hemoglobin and hematocrit are stable at 10.8/32.4. Platelets remain even lower at 74. -etiology unknown. -heme Onc is consult for further recommendations. - Niferex and Vitamin C is ordered based upon Iron studies showing Iron of 19, TIBC of 236, and % saturations of 8. - Continue to trend labs. -continue Zosyn q.6 hours. -general surgery consulted and recommends conservative treatment with antibiotics versus surgical intervention at this time as pt. is completely asymptomatic. -Will continue to trend downward. -consider repeat imaging if worsening of clinical condition -PTOT evaluation and recommendations for rehab is made. - CK today is decreased to 416 from 2101. Inflammatory markers remain elevated. - Monitor all labs and VS and await Oncology consult. -there is been interval improvement in blood pressures. -continue IV fluids and hold oral antihypertensives. -continue to monitor vital signs, continue telemetry. - Stable BP. -hold statin in setting of transaminitis. - Serum calcium is 7.1, Albumin is 2.1. - Corrected Calcium for Albumin is 8.2. 12/17/21 cont to be intermittently febrile cont zofran and protonix for N/V per pt effective acute cholecystis asymptomtic monitoring w conservative tx for now per surgeon cont zosyn pt w RLE cellulitis on Zosyn ruled out for DVT further testing recs per surgeon 12/18/21 labs looks ok but clinically cellulitis looks worse today will restart vanco and monitor for 24hrs bx today without complication cont supportive care 12/19/21 vanc not started but cellulitis resolving cellulitis significantly improved today cont current care anticipate dc when 24hours afebrile pancytopenia, procal sent and serial CRP ordered 12/20/21 afebrile 24 hrs pending clearance by surgery dc to SNF possibly tomorrow c/s placed to healthcare market consultant 12/21/21 cont to have fever p
[2021-12-24] VITALS (8 sets, daily range): BP systolic 104–122; BP diastolic 57–77; PULSE 91–109; RESP 18–20; TEMP 36.8–37.7; O2SAT 93–99
[2021-12-24 06:24] LABS: Basophils Percent Auto 0.3 % (0.2-1.2); Hematocrit 34.2 % (42.0-52.0); Hemoglobin 11.5 g/dL (14.0-18.0); Immature Granulocyte Absolute 0.03 K/mm3 (0.00-0.031); Immature Granulocyte Percent A 0.8 % (0-0.5); Immature Platelet Fraction Pct 7.7 % (0.9-11.2); Lymphocytes Absolute Auto 0.85 K/mm3 (0.9-3.2); Lymphocytes Percent Auto 23.7 % (18.3-44.2); Mean Corpuscular HGB Conc 33.6 g/dl (32-36); Mean Corpuscular Hemoglobin 29.2 pg (26-34); Mean Corpuscular Volume 86.8 fl (80-100); Mean Platelet Volume 11.2 fl (7.4-10.4); Monocytes Absolute Auto 0.2 K/mm3 (0.1-0.6); Monocytes Percent Auto 6.7 % (2.6-8.5); Neutrophils Absolute Auto 2.5 K/mm3 (1.3-6.7); Neutrophils Percent Auto 68.5 % (45.5-73.1); Platelet Count Result 75 k/mm3 (150-375); Red Blood Count 3.94 M/mm3 (4.6-6.20); Red Cell Distribution Width 14.8 % (11.5-14.5); White Blood Count 3.6 K/mm3 (4.5-10.0)
[2021-12-24 06:41] LABS: Anion Gap 3 mmol/L (8-16); Blood Urea Nitrogen 15 mg/dL (9-20); Calcium 7.2 mg/dL (8.4-10.2); Carbon Dioxide 24 mmol/L (22-30); Chloride 97 mmol/L (98-107); Estimated CRCL calculation 52 ml/min; Estimated Glomerular Filt Rate > 60; Glucose 96 mg/dL (65-110); Magnesium 1.9 mg/dL (1.6-2.3); Sodium 124 mmol/L (137-145)
[2021-12-24 07:28] LABS: Anisocytosis 1+ (NORMAL); Ovalocytes 1+ (NORMAL); Platelet Estimate Decreased (Adequate)
[2021-12-24] MEDS: POLYSACCHARIDE IRON COMPLEX 150 MG CAPSULE PO (09:37)
[2021-12-24] MEDS: ASCORBIC ACID 500 MG TABLET PO (09:37)
[2021-12-24] MEDS: OPTI-GEN TAB 1 TABLET PO (09:38)
[2021-12-24] MEDS: POTASSIUM CITRATE 5 MEQ TAB CR 10 MEQ PO ×2 (09:38→17:59)
[2021-12-24] MEDS: PANTOPRAZOLE 40 MG TABLET PO (09:40)
--- NOTE | 2021-12-24 14:03 | PM.IMPN ---
Progress Note: A&P Assessment and Plan (1) Hypocalcemia: Code(s): E83.51 - Hypocalcemia Status: Acute (2) Acute cholecystitis: Code(s): K81.0 - Acute cholecystitis Status: Acute (3) Dehydration: Code(s): E86.0 - Dehydration Status: Acute (4) Pancytopenia: Code(s): D61.818 - Other pancytopenia Status: Acute (5) Hypertension: Qualifiers: Hypertension type: unspecified Qualified Code(s): I10 - Essential (primary) hypertension Code(s): I10 - Essential (primary) hypertension Status: Acute (6) Hyperlipidemia: Qualifiers: Hyperlipidemia type: unspecified Qualified Code(s): E78.5 - Hyperlipidemia, unspecified Code(s): E78.5 - Hyperlipidemia, unspecified Status: Acute (7) Generalized weakness: Code(s): R53.1 - Weakness Status: Acute Assessment and Plan: -PTOT evaluation and recommendations for rehab is made. - Monitor all labs and VS and await Oncology consult. (8) Transaminitis: Code(s): R74.01 - Elevation of levels of liver transaminase levels Status: Acute Assessment and Plan: -both CT of the abdomen and pelvis as well as ultrasound of the right upper quadrant are suggestive of acute cholecystitis. -surgery consult and recommends treatment with IV antibiotics versus surgery intervention. They note today that the pt. is completely asymptomatic of acute cholecystitis. -will continue to trend liver enzymes during hospitalization. Additional Plan - Heightened concern for potential oncological process due to extensive lymphadenopathy within the abdominal cavity. -hematology oncology is consulted at this time in the presence of pancytopenia. -surgery has evaluated and suggests that the amount of enlarged lymph nodes present in the abdominal cavity is extensive even for cholecystitis and recommends potential biopsy need in the future. - Aerobic bottle of Blood cultures is growing Gram positive Bacilli. We are awaiting identification and sensitivity at this time. - Continue Zosyn,. -patient with transaminitis. AST and ALT are improved as compared to yesterday, and pt's Bilirubin remains normal today,. Alk phos is still elevated. -both CT of the abdomen and pelvis as well as ultrasound of the right upper quadrant are suggestive of acute cholecystitis. -surgery consult and recommends treatment with IV antibiotics versus surgery intervention. They note today that the pt. is completely asymptomatic of acute cholecystitis. -will continue to trend liver enzymes during hospitalization. -WBC's are decreased today to 3.6. Hemoglobin and hematocrit are stable at 10.8/32.4. Platelets remain even lower at 74. -etiology unknown. -heme Onc is consult for further recommendations. - Niferex and Vitamin C is ordered based upon Iron studies showing Iron of 19, TIBC of 236, and % saturations of 8. - Continue to trend labs. -continue Zosyn q.6 hours. -general surgery consulted and recommends conservative treatment with antibiotics versus surgical intervention at this time as pt. is completely asymptomatic. -Will continue to trend downward. -consider repeat imaging if worsening of clinical condition -PTOT evaluation and recommendations for rehab is made. - CK today is decreased to 416 from 2102. Inflammatory markers remain elevated. - Monitor all labs and VS and await Oncology consult. -there is been interval improvement in blood pressures. -continue IV fluids and hold oral antihypertensives. -continue to monitor vital signs, continue telemetry. - Stable BP. -hold statin in setting of transaminitis. - Serum calcium is 7.1, Albumin is 2.1. - Corrected Calcium for Albumin is 8.2. 12/23/21 HIDA cont abx cont supportive care tylenol for fever PT/OT Bone marrow bx pending 12/24/21 Bone marrow is pending DC once treatment plan is decided back to SNF Subjective Date/time seen: 12/24/21 14:03 Interval history: [id number]-vik
[2021-12-24] MEDS: ONDANSETRON INJ 4 MG/2 ML VIAL IV PUSH (17:59)
[2021-12-25 05:44] VITALS: BP 116/78; PULSE 97; RESP 19; TEMP 36.6; O2SAT 95
[2021-12-25 08:00] VITALS: PULSE 97; RESP 19; O2SAT 95
[2021-12-25] MEDS: POLYSACCHARIDE IRON COMPLEX 150 MG CAPSULE PO (09:12)
[2021-12-25] MEDS: POTASSIUM CITRATE 5 MEQ TAB CR 10 MEQ PO ×2 (09:13→17:57)
[2021-12-25] MEDS: PANTOPRAZOLE 40 MG TABLET PO (09:13)
[2021-12-25] MEDS: ASCORBIC ACID 500 MG TABLET PO (09:13)
[2021-12-25] MEDS: OPTI-GEN TAB 1 TABLET PO (09:13)
[2021-12-25] MEDS: ONDANSETRON INJ 4 MG/2 ML VIAL IV PUSH (09:18)
--- NOTE | 2021-12-25 12:17 | PCNFU ---
Nutrition Follow-Up Complete: Inadequate oral intake R/T poor PO intake AEB report of decreased appetite Goal:Pt to meet >50% of estimated nutritional needs Pt is meeting current goal Pt current nutrition is Low fat diet. Nutrition recommendation: continue with current diet order and Ensure compact BID Last recorded weight is 86.4 kg- up 3kg x 5 days. Bowel Motility:+ BM 12/23 Labs Reviewed:Hgb:11.5, HCT:34.2, NA:124, Alb; 2.4 Meds Noted:Vitamin C, Ocuvite, Protonix, Zosyn, Niferex-150, Potassium Citrate Skin:WNL Additional Notes: Intake of meals reported 75-100%. Pt is receiving dietary supplement of Ensure Compact BID providing an additional 220kcal and 9g of protein per shake. Continue to encouraged intake of diet and dietary supplements. Agree with diet order at this time. Will continue to follow. Will monitor meds, wt, labs, and reported intake every 5 days
--- NOTE | 2021-12-25 13:35 | PM.IMPN ---
Progress Note: A&P Assessment and Plan (1) Hypocalcemia: Code(s): E83.51 - Hypocalcemia Status: Acute (2) Acute cholecystitis: Code(s): K81.0 - Acute cholecystitis Status: Acute (3) Dehydration: Code(s): E86.0 - Dehydration Status: Acute (4) Pancytopenia: Code(s): D61.818 - Other pancytopenia Status: Acute (5) Hypertension: Qualifiers: Hypertension type: unspecified Qualified Code(s): I10 - Essential (primary) hypertension Code(s): I10 - Essential (primary) hypertension Status: Acute (6) Hyperlipidemia: Qualifiers: Hyperlipidemia type: unspecified Qualified Code(s): E78.5 - Hyperlipidemia, unspecified Code(s): E78.5 - Hyperlipidemia, unspecified Status: Acute (7) Generalized weakness: Code(s): R53.1 - Weakness Status: Acute Assessment and Plan: -PTOT evaluation and recommendations for rehab is made. (8) Transaminitis: Code(s): R74.01 - Elevation of levels of liver transaminase levels Status: Acute Assessment and Plan: -both CT of the abdomen and pelvis as well as ultrasound of the right upper quadrant are suggestive of acute cholecystitis. -surgery consult and recommends treatment with IV antibiotics versus surgery intervention. They note today that the pt. is completely asymptomatic of acute cholecystitis. -will continue to trend liver enzymes during hospitalization. Additional Plan - Heightened concern for potential oncological process due to extensive lymphadenopathy within the abdominal cavity. -hematology oncology is consulted at this time in the presence of pancytopenia. -surgery has evaluated and suggests that the amount of enlarged lymph nodes present in the abdominal cavity is extensive even for cholecystitis and recommends potential biopsy need in the future. - Aerobic bottle of Blood cultures is growing Gram positive Bacilli. We are awaiting identification and sensitivity at this time. - Continue Zosyn,. -patient with transaminitis. AST and ALT are improved as compared to yesterday, and pt's Bilirubin remains normal today,. Alk phos is still elevated. -both CT of the abdomen and pelvis as well as ultrasound of the right upper quadrant are suggestive of acute cholecystitis. -surgery consult and recommends treatment with IV antibiotics versus surgery intervention. They note today that the pt. is completely asymptomatic of acute cholecystitis. -will continue to trend liver enzymes during hospitalization. -WBC's are decreased today to 3.6. Hemoglobin and hematocrit are stable at 10.8/32.4. Platelets remain even lower at 74. -etiology unknown. -heme Onc is consult for further recommendations. - Niferex and Vitamin C is ordered based upon Iron studies showing Iron of 19, TIBC of 236, and % saturations of 8. - Continue to trend labs. -continue Zosyn q.6 hours. -general surgery consulted and recommends conservative treatment with antibiotics versus surgical intervention at this time as pt. is completely asymptomatic. -Will continue to trend downward. -consider repeat imaging if worsening of clinical condition -PTOT evaluation and recommendations for rehab is made. - CK today is decreased to 416 from 2102. Inflammatory markers remain elevated. - Monitor all labs and VS and await Oncology consult. -there is been interval improvement in blood pressures. -continue IV fluids and hold oral antihypertensives. -continue to monitor vital signs, continue telemetry. - Stable BP. -hold statin in setting of transaminitis. - Serum calcium is 7.1, Albumin is 2.1. - Corrected Calcium for Albumin is 8.2. 12/23/21 HIDA cont abx cont supportive care tylenol for fever PT/OT Bone marrow bx pending 12/24/21 Bone marrow is pending DC once treatment plan is decided back to [facility] 12/25 Bone marrow report is back Pt can DC back to [facility] with follow up with [facility]
[2021-12-25 14:00] VITALS: BP 115/88; PULSE 110; RESP 24; TEMP 36.6; O2SAT 97
--- NOTE | 2021-12-25 14:16 | PCOTNOTE ---
Attempted to see patient for OT this PM. Patient states he is so tired he doesn't want to do anything right now. Patient c/o fatigue, refused out of bed activity. Patient last patient of day, was not re-attempted for this reason. Patient not seen for OT.
--- NOTE | 2021-12-25 18:13 | WPDONCPN ---
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 Unfortunately further classification of this lymphoma cannot be made due to inadequate specimen. I have discussed with Dr. Lucas as well. I suggested lymph node biopsy. This will be arranged as an outpatient with Dr. Garcia with going to follow-up with this patient. I have also discussed with Dr. Sun today. Will sign off. - Time Spent With Patient Total time spent is greater than 50% in coordination of care (as documented) at patient's floor/unit and/or counseling patient: 15 - 25 minutes Subjective Interval history: Lymphoproliferative disorder Review of Systems - Review of Systems Patient denies any chest pain and abdominal pain. Denies any fevers and chills. Complain of tiredness and fatigue. No other new complaints. - Neurologic Reports system reviewed and no additional complaints, except as documented, Reports weakness, Denies headache(s) Exam Vital signs: Temp Pulse Resp BP Pulse Ox 36.6 C 110 H 24 H 115/88 97 12/25/21 14:00 12/25/21 14:00 12/25/21 14:00 12/25/21 14:00 12/25/21 14:00 Lungs are clear to auscultation bilaterally Cardiovascular regular rate rhythm no murmurs Abdomen soft nontender nondistended bowel sounds are positive Extremities no edema PN: Objective Data - Labs CBC & Chem 7: 12/24/21 05:42 12/24/21 05:42
[2021-12-25 20:50] VITALS: BP 119/76; PULSE 111; RESP 20; TEMP 38.8; O2SAT 98
[2021-12-25 21:00] VITALS: PULSE 111; RESP 20; O2SAT 98
[2021-12-26] MEDS: ONDANSETRON INJ 4 MG/2 ML VIAL IV PUSH (00:11)
[2021-12-26 06:00] VITALS: BP 112/73; PULSE 99; RESP 20; TEMP 37.1; O2SAT 96
[2021-12-26 08:00] VITALS: PULSE 99; RESP 20; O2SAT 96
[2021-12-26] MEDS: OPTI-GEN TAB 1 TABLET PO (08:36)
[2021-12-26] MEDS: POTASSIUM CITRATE 5 MEQ TAB CR 10 MEQ PO (08:36)
[2021-12-26] MEDS: POLYSACCHARIDE IRON COMPLEX 150 MG CAPSULE PO (08:36)
[2021-12-26] MEDS: ASCORBIC ACID 500 MG TABLET PO (08:36)
[2021-12-26] MEDS: PANTOPRAZOLE 40 MG TABLET PO (08:36)
[2021-12-26 11:09] LABS: EDCOVIDSCREEN Negative (Negative)
--- NOTE | 2021-12-26 15:04 | PM.DS ---
DS: Admitting Diagnosis Discharge Date December 26, 2021 Admitting Diagnosis Acute cholecystitis DS: Discharge Diagnosis Discharge Diagnosis (1) Acute cholecystitis: Code(s): K81.0 - Acute cholecystitis Status: Acute (2) Dehydration: Code(s): E86.0 - Dehydration Status: Acute (3) Pancytopenia: Code(s): D61.818 - Other pancytopenia Status: Acute (4) Hypertension: Qualifiers: Hypertension type: unspecified Qualified Code(s): I10 - Essential (primary) hypertension Code(s): I10 - Essential (primary) hypertension Status: Acute (5) Hyperlipidemia: Qualifiers: Hyperlipidemia type: unspecified Qualified Code(s): E78.5 - Hyperlipidemia, unspecified Code(s): E78.5 - Hyperlipidemia, unspecified Status: Acute (6) Generalized weakness: Code(s): R53.1 - Weakness Status: Acute Assessment and Plan: -PTOT evaluation and recommendations for rehab is made. (7) Transaminitis: Code(s): R74.01 - Elevation of levels of liver transaminase levels Status: Acute Assessment and Plan: -both CT of the abdomen and pelvis as well as ultrasound of the right upper quadrant are suggestive of acute cholecystitis. -surgery consult and recommends treatment with IV antibiotics versus surgery intervention. They note today that the pt. is completely asymptomatic of acute cholecystitis. -will continue to trend liver enzymes during hospitalization. DS: Summary Hospital Course Reason for hospitalization: Acute cholecystitis Hospital Course: 68-year-old male with past medical history significant for hypertension, hyperlipidemia, prostate cancer status post prostatectomy, GERD, gout kidney stones presented to the ER with the complaint of weakness and nausea. He was sent to the ED after telling his family doctor about a month long history of decreased appetite and dehydration. At [facility] in [place], he was diagnosed with viral syndrome, given IV fluids and discharged home. After he was home, he felt worse and decided to come back to the ER here at [facility]. In the ER, he was noted to have pancytopenia a temperature of a 100.3?. CT of the abdomen and pelvis showed abdominal lymphadenopathy as well as gallbladder wall changes. Ultrasound showed gallbladder wall thickening with some calcification concerning for cholecystitis. Patient was started on Zosyn with general surgery consult pending. Concern for underlying metastatic process and multiple was present due to the pancytopenia and diffuse lymphadenopathy some collagen was consulted. Blood cultures did come back positive then Zosyn was continued as it was sensitive to this. Surgery wanted to monitor on antibiotics and hold off on surgery. Surgery recommended conservative management with antibiotics and holding off on surgery. Patient developed right lower extremity swelling and redness concerning for cellulitis while on Zosyn. Dopplers were ordered to rule out DVT. Oncology recommended bone marrow aspiration and lymph node biopsy for the pancytopenia lymphadenopathy workup. Due to worsening of cellulitis, vancomycin was added on December 18. Bone marrow biopsy taken on December 18, 2021. Cellulitis improved on vancomycin. Patient continued to be pancytopenic. Procalcitonin and CRP were ordered. On December 21 patient continued to be pancytopenic and febrile but inflammatory markers were trending down. On December 23 scan was ordered. Bone marrow biopsy came back December 25 and oncology diagnosed with large cell lymphoproliferative disorder however further classification unable to be made to do an adequate specimens. Oncology recommended outpatient lymph node biopsy for further delineation of the lymphoma. Patient's cellulitis completely resolved and he was discharged in good condition with close outpatient follow-up with Oncology and General surgery for lymph node biopsy and possible cholecystectomy. Ti
== END 2021-12-26 15:13 | disposition home or self-care (01) | DRG 809 ==
LOC: ANHED 09:41 → ANHIMU 13:08 → ANH3MEDSUR 12-16 16:35
PROVIDERS: Hospitalist; Nurse Practitioner Adult Health; Physician Assistant; Radiology Diagnostic Radiology; Admitting Provider Family Medicine; Emergency Provider Emergency Medicine; PCP Internal Medicine; Referring Provider Internal Medicine Hematology & Oncology; Visit Provider Student in an Organized Health Care Education/Training Program
PROC: 079T3ZX Drainage of Bone Marrow, Percutaneous Approach, Diagnostic (ICD-10-PCS; principal; 2021-12-18 12:00)
DX: D61.818 Other pancytopenia (principal); K81.0 Acute cholecystitis; R59.0 Localized enlarged lymph nodes; Z20.822 Contact with and (suspected) exposure to COVID-19; R74.01 Elevation of levels of liver transaminase levels; R53.1 Weakness; I10 Essential (primary) hypertension; E78.5 Hyperlipidemia, unspecified; Z79.899 Other long term (current) drug therapy; Z79.82 Long term (current) use of aspirin; Z85.46 Personal history of malignant neoplasm of prostate; Z80.0 Family history of malignant neoplasm of digestive organs; E86.0 Dehydration; E83.51 Hypocalcemia
CPT/HCPCS: 36415; 38222; 71045; 74176; 76705; 78226; 80048; 80053; 80074; 81001; 82550; 82607; 82728; 82746; 83540; 83550; 83605; 83615; 83690; 83735; 84100; 84145; 84153; 84154; 84155; 84165; 84443; 84550; 85025; 85027; 85046; 85055; 85610; 85652; 85730; 86140; 87040; 87077; 87426; 88184; 88185; 88305; 88311; 88313; 88341; 88342; 88360; 88365; 93005; 93970; 96361; 96365; 96366; 96367; 96375; 96376; 97110; 97112; 97116; 97161; 97165; 97530; 97535; 99285; A9270; A9537; C9803; G0378; J0131; J1642; J2405; J2543; J3010; J7030; J7040; J7120

== ENCOUNTER 2022-03-30 18:50 | Inpatient (IN) | payer OTHER, SELFPAY ==
[2022-03-30] VITALS (22 sets, daily range): BP systolic 93–159; BP diastolic 57–97; PULSE 89–143; RESP 17–32; TEMP 36.6–37.9; O2SAT 93–100
--- NOTE | ~2022-03-30 | US_ITS ---
EXAMINATION: US abdomen limited DATE: 04/03/2022 15:25 INDICATION: Elevated liver function tests TECHNIQUE: Multiple grayscale and Doppler ultrasound images of the abdomen were obtained. COMPARISON: 12/14/2021 FINDINGS: The head and body of the pancreas are normal. The pancreatic tail is obscured by bowel gas. The liver is normal with normal echogenicity and echotexture. No surface nodularity. Normal hepatope richard flow in the main portal vein. The gallbladder is normal with no abnormal wall thickening, pericho lecystic fluid or stones. The normal common bile duct measures 6 mm. There was no sonographic Gibbs sign. Right upper quadrant ascites is noted. IMPRESSION: 1. No sonographic correlate for the patient's symptoms. 2. Right upper quadrant ascites. Reviewed, dictated and finalized at location A.
--- NOTE | ~2022-03-30 | XR_ITS ---
XR chest 1V portable 03/30/2022 19:57 Indication: Dyspnea and chills. History of lymphoma. Hypertension. Procedure: AP portable chest Comparison: 12/14/2021 Findings: Heart size normal. Diffuse bilateral airspace disease. No significant effusion or pneumotho rax. No acute osseous abnormality. Impression: 1: Diffuse bilateral airspace disease may represent pneumonia or edema. Reviewed, dictated and finalized at location A. Impression: 1: Diffuse bilateral airspace disease may represent pneumonia or edema.
--- NOTE | ~2022-03-30 | XR_ITS ---
XR chest 1V portable 04/01/2022 15:55 Indication: Pneumonia. Cough. Procedure: AP portable chest Comparison: 03/31/2022 Findings: PICC line tip in the condyle aspect of the SVC. Improving patchy bilateral airspace disease . Possible small effusions. No pneumothorax. No acute osseous abnormality. Impression: 1: Improving patchy bilateral airspace disease which may represent edema or pneumonia. Reviewed, dictated and finalized at location B. Impression: 1: Improving patchy bilateral airspace disease which may represent edema or pne umonia.
--- NOTE | ~2022-03-30 | XR_ITS ---
EXAMINATION: XR chest 1V portable DATE: 03/31/2022 06:40 INDICATION: Severe respiratory distress with change in condition TECHNIQUE: frontal view of the chest was obtained. COMPARISON: Chest radiograph dated 03/31/2022 FINDINGS: Increasing diffuse bilateral opacities with perihilar predominance. Trace amount of fluid along the r ight major and minor fissures. No pneumothorax or left-sided pleural effusion. Heart size is normal. Small hiatal hernia. IMPRESSION: 1. Increasing perihilar predominant bilateral lung disease and favor pulmonary edema over pneumonia. Reviewed, dictated and finalized at location A.
--- NOTE | ~2022-03-30 | CT_ITS ---
EXAMINATION: CTA chest PE protocol DATE: 03/30/2022 21:06 CDT INDICATION: Left leg DVT. Shortness of breath. TECHNIQUE: Computed tomographic angiography (CTA) of the chest was performed with 100 mL Omnipaque-35 0 intravenous contrast. The dose-length product was 516.84 mGy-cm. Maximum intensity projection 3D-re constructions of the aorta and other arteries were constructed by the technologist on a separate work station. COMPARISON: Chest dated 03/30/2022. FINDINGS: Borderline heart size. Small hiatal hernia with thickening of the distal esophagus. Small p leural effusions. Study is technically adequate without evidence for pulmonary embolism. There is ath erosclerosis of the aorta and coronary arteries. No evidence for aneurysm or aortic dissection. There are right renal cysts. There is extensive patchy groundglass opacities in both lungs, consistent wit h pneumonia. No pneumothorax. No thoracic lymphadenopathy. IMPRESSION: 1. No evidence for pulmonary embolism. 2: Extensive patchy groundglass opacification in both lungs, consistent with pneumonia. 3: Small pleural effusions. Reviewed, dictated and finalized at location A. IMPRESSION: 1. No evidence for pulmonary embolism. 2: Extensive patchy groundglass opacification in both lungs, consistent with p neumonia. 3: Small pleural effusions.
--- NOTE | ~2022-03-30 | XR_ITS ---
EXAMINATION: XR chest 1V portable DATE: 03/31/2022 01:57 INDICATION: PICC line placement TECHNIQUE: frontal view of the chest was obtained. COMPARISON: Chest radiograph and CT dated 03/30/2022 FINDINGS: Right upper extremity peripherally inserted central venous catheter (PICC) tip at the superior cavoa trial junction. Scattered bilateral airspace opacities more prominent than with some interval progres sissy on the right and. No pleural effusion or pneumothorax. The cardiomediastinal silhouette is marita l. IMPRESSION: 1. Right upper extremity PICC line tip at the superior cavoatrial junction. 2. Has been some interval increase in right-sided predominant bilateral lung disease which could repr esent pneumonia and/or pulmonary edema. Reviewed, dictated and finalized at location A. IMPRESSION: 1. Right upper extremity PICC line tip at the superior cavoatrial junction. 2. Has been some interval increase in right-sided predominant bilateral lung di sease which could represent pneumonia and/or pulmonary edema.
--- NOTE | 2022-03-30 18:58 | ECG_ITS ---
Measurements Intervals [place] Rate: 140 P: -10 CO: 119 QRS: -24 QRSD: 78 T: 43 QT: 255 QTc: 389 Interpretive Statements SINUS TACHYCARDIA WITH SHORT CO INTERVAL WITH FREQUENT VENTRICULAR PREMATURE COMPLEXES, POSSIBLE ATRIAL FLUTTER BORDERLINE LEFT AXIS DEVIATION [QRS AXIS < -20] ABNORMAL RHYTHM ECG COMPARED TO ECG 12/14/2021 09:03:53 PVCS ARE NOW SEEN Electronically Signed On 03-31-2022 13:55:29 CDT by Gunner Smith M.D.
--- NOTE | 2022-03-30 19:28 | PC.NURSE ---
Pt arrived with PICC line in place to MAIKOL, that he reports was inserted at [facility] where he goes for his lymphoma.
[2022-03-30] MEDS: SODIUM CHLORIDE 0.9% IV 1,000 ML 999 ML IV CONT (19:29)
--- NOTE | 2022-03-30 19:30 | PC.NURSE ---
Pt here from [facility] who called EMS for pt short of breath and shivering. Pt febrile on arrival with temp of 100.2F. HR tachy @ 140. Pt has lymphoma c active chemo. Picc line in MAIKOL on arrival to ED. Pt a/o x 4.
--- NOTE | 2022-03-30 19:33 | ED.SOB ---
HPI - SOB/Dyspnea General Chief Complaint: Fever Stated Complaint: chills fever short of breath weakness Time Seen by Provider: 03/30/22 18:54 History of Present Illness HPI Narrative: 77-year-old male presents emergency room secondary to tachycardia and shortness of breath. Patient has currently been treated for a deep venous thrombosis with oral anticoagulants. He states she was diagnosed couple weeks ago. The DVT was noted to be in his left leg. He is also being treated for lymphoma. He states he has had some chills and some mild shortness of breath but got much worse this evening. He denies any chest pain. He has vaccinated for COVID. Related Data Home Medications Medication Instructions Recorded Confirmed Adult Low Dose Aspirin 81 mg BYMOUTH QID 12/14/21 12/14/21 lansoprazole 15 mg capsule,delayed 15 mg PO DAILY 12/14/21 12/14/21 release (Prevacid 24Hr) metoprolol tartrate 50 mg tablet 50 mg PO DAILY 12/14/21 12/14/21 lgjtpilg-rsf-vooes acid 300 1 tablet PO DAILY 12/14/21 12/14/21 mcg-lycopene 600 mcg-lutein 300 mcg tablet (Centrum Silver Men) potassium citrate 10 mEq (1,080 10 meq PO BID 12/14/21 12/14/21 mg) tablet,extended release pravastatin 20 mg tablet 20 mg PO DAILY 12/14/21 12/14/21 Allergies Allergy/AdvReac Type Severity Reaction Status Date / Time No Known Allergies Allergy Verified 03/30/22 19:32 Review of Systems Review of Systems: CONSTITUTIONAL: Denies fever, chills, or sweats. EYES: Denies visual changes, redness, or discharge. ENT: Denies rhinorrhea, congestion, sore throat, or otalgia. CARDIOVASCULAR: Denies chest pain, palpitations, or edema. Does feel like his heart is beating fast RESPIRATORY: Feels short of breath had a mild cough lately GASTROINTESTINAL: Denies abdominal pain, nausea, vomiting, or diarrhea. GENITOURINARY: Denies dysuria or hematuria. SKIN: Denies rash or itching. MUSCULOSKELETAL: Denies back pain, joint pain, or myalgia. NEUROLOGIC: Denies headache, numbness, or weakness. PSYCHIATRIC: Denies anxiety or depression. [facility] Past Medical History Medical History Arthritis Gout Hyperlipidemia Hypertension Kidney stones Lymphoma Prostate cancer Surgical History Surgical History History of appendectomy History of arthroplasty of right knee History of inguinal hernia repair History of prostatectomy (2016) History of tonsillectomy Family History Family History Father Colon cancer Cerebrovascular accident Other Congestive heart failure Social History Social History Social History: Surrogate decision maker: Elida Bautista, sibling or Wilian Cisseott, [id number]. Code status: Full code. Smoking status: Never smoker Alcohol intake: never Substance use: never Substance use type: does not use Additional living arrangements comments: The patient is and lives in [place]. He has no children. Additional occupation/education comments: Retired pharmacist. Spiritual care concerns: No Exam Narrative: APPEARANCE: Well appearing, no pain or distress, well-nourished. Head Normocephalic and atraumatic. EYES: PERRLA/EOMI, conjunctivae clear. NOSE: Normal with no drainage EARS:TMS clear with [place], with good light reflex. THROAT: Pharynx clear, no exudate. NECK: Supple. No adenopathy, no masses. RESPIRATORY: Airway patent.. Clear to auscultation bilaterally, no rales, rhonchi, wheezing. Tachypnea CARDIOVASCULAR: Regular rate and rhythm without murmurs, rubs, or gallops. Tachycardic ABDOMINAL: Soft, nontender, nondistended, no hepatosplenomegaly Musculoskeletal: Moves all extremities. Strength/ROM intact, some tenderness to the left calf NEURO: Alert. Cranial nerves II through XII intact. Normal gait. Good coordination. Nonfoca
[2022-03-30 19:44] LABS: Basophils Percent Auto 0.4 % (0.2-1.2); Eosinophils Percent Auto 0.4 % (0-4.4); Hematocrit 29.7 % (42.0-52.0); Hemoglobin 9.7 g/dL (14.0-18.0); Lymphocytes Absolute Auto 0.37 K/mm3 (0.9-3.2); Lymphocytes Percent Auto 3.8 % (18.3-44.2); Mean Corpuscular HGB Conc 32.7 g/dl (32-36); Mean Corpuscular Hemoglobin 28.9 pg (26-34); Mean Corpuscular Volume 88.4 fl (80-100); Mean Platelet Volume 9.8 fl (7.4-10.4); Monocytes Absolute Auto 0.7 K/mm3 (0.1-0.6); Monocytes Percent Auto 7.3 % (2.6-8.5); Neutrophils Absolute Auto 8.4 K/mm3 (1.3-6.7); Neutrophils Percent Auto 87.1 % (45.5-73.1); Platelet Count Result 233 k/mm3 (150-375); Red Blood Count 3.36 M/mm3 (4.6-6.20); Red Cell Distribution Width 15.8 % (11.5-14.5); White Blood Count 9.6 K/mm3 (4.5-10.0)
--- NOTE | 2022-03-30 19:47 | PC.NURSE ---
This RN called pt's sister Elida at his request to update her that he is currently in our ED. Phone number already in pt's chart.
[2022-03-30 19:55] LABS: Lactic Acid Reflex 1.4 mmol/L (0.7-2.0)
[2022-03-30 19:56] LABS: Alanine Aminotransferase 49 U/L (6-50); Albumin Level 3.1 g/dL (3.5-5.1); Alkaline Phosphatase 100 U/L (38-126); Anion Gap 8 mmol/L (8-16); Aspartate Amino Transferase 63 U/L (17-59); Bilirubin,Total 0.5 mg/dL (0.2-1.3); Blood Urea Nitrogen 29 mg/dL (9-20); Calcium 9.1 mg/dL (8.4-10.2); Carbon Dioxide 24 mmol/L (22-30); Chloride 96 mmol/L (98-107); Estimated CRCL calculation 47 ml/min; Estimated Glomerular Filt Rate > 60; Glucose 120 mg/dL (65-110); Ovalocytes 1+ (NORMAL); Platelet Estimate Adequate (Adequate); Potassium 4.4 mmol/L (3.4-5.0); Sodium 128 mmol/L (137-145)
[2022-03-30 19:57] LABS: INR 1.8; Prothrombin Time 20.2 Seconds (11.1-14.7)
[2022-03-30] MEDS: ACETAMINOPHEN 500 MG TABLET 1000 MG PO (20:14)
[2022-03-30 20:24] LABS: SARS-CoV-2 RNA PCR Negative
[2022-03-30 20:28] LABS: NT Pro B Type Natriuretic Pept 2110 pg/mL (5-100)
--- NOTE | 2022-03-30 21:47 | PM.IMHP ---
H&P: HPI History of Present Illness Date/Time: 03/30/22 21:47 Chief Complaint: chills. Narrative: This is a 77-year-old male with a recently diagnosed large B-cell lymphoma patient is undergoing chemotherapy he has been living at a group home facility. Today he comes to the emergency room due to fatigue, poor appetite, shortness of breath, chills, rigors, for the last 2 days or so cough productive of clear sputum, generalized malaise, body aches and pains, generalized weakness. Preliminary workup was significant for chest x-ray with diffuse opacities, he tested negative for COVID, chemistry panel sodium 1 was 128 chloride was 96 hemoglobin 9.7. patient is been admitted for further evaluation management and treatment. Review of Systems Review of Systems: generalized weakness, fatigue, shortness of breath productive cough chills, rigors. Constitutional: Constitutional: Reports body ache(s), Reports chills, Reports fatigue, Reports malaise, Reports poor appetite, Reports weakness and Reports weight loss Eyes: Eyes: Denies change in vision ENT: Denies dysphagia and Denies vertigo Cardiovascular: Cardiovascular: Denies chest pain, Denies irregular heart rhythm, Denies lightheadedness, Denies palpitations and Denies dyspnea on exertion Respiratory: Respiratory: Reports cough, Reports excessive phlegm production, Denies pain on inspiration and Reports dyspnea Gastrointestinal: Gastrointestinal: Denies abdominal pain, Denies dyspepsia, Denies heartburn, Denies diarrhea, Denies nausea and Denies vomiting Genitourinary: Genitourinary: Denies dysuria Musculoskeletal: Musculoskeletal: Reports muscle weakness Integumentary/Breasts: Skin/Breast: Denies rash Neurologic: Denies focal weakness, Denies Sensory deficit (Neuro) and Reports paresthesias Psychiatric: Psychiatric: Reports no additional psychiatric complaints and Reports as per HPI Endocrine: Endocrine: Denies cold intolerance, Denies fatigue, Denies flushing, Denies heat intolerance, Denies polyphagia, Denies polydipsia and Denies palpitations Hematologic/Lymphatic: Hematologic/Lymphatic: Reports easy bruising and Denies lymphadenopathy Allergic/Immunologic: Allergic/Immunologic: Reports no additional allergic/immunologic complaints and Reports as per HPI PMFSH Past Medical History Medical History Arthritis Gout Hyperlipidemia Hypertension Kidney stones Lymphoma Prostate cancer Surgical History Surgical History History of appendectomy History of arthroplasty of right knee History of inguinal hernia repair History of prostatectomy (2016) History of tonsillectomy Family History Family History Father Colon cancer Cerebrovascular accident Other Congestive heart failure Social History Social History Social History: Surrogate decision maker: Elida Bautista, sibling or Wilian Bautista, [id number]. Code status: Full code. Smoking status: Never smoker Alcohol intake: never Substance use: never Substance use type: does not use Additional living arrangements comments: The patient is and lives in [place]. He has no children. Additional occupation/education comments: Retired pharmacist. Spiritual care concerns: No Meds Home Medications and Allergies Home Medications Medication Instructions Recorded Confirmed Type aspirin 81 mg tablet,delayed 81 mg PO DAILY ##0 12/14/21 03/31/22 History release lansoprazole 15 mg capsule,delayed 15 mg PO DAILY 12/14/21 03/31/22 History release (Prevacid 24Hr) metoprolol tartrate 50 mg tablet 25 mg PO DAILY 12/14/21 03/31/22 History uzujqagw-txz-eapnb acid 300 1 tablet PO DAILY 12/14/21 03/31/22 History mcg-lycopene 600 mcg-lutein 300 mcg tablet (Centrum Silver Men)
--- NOTE | 2022-03-30 23:15 | ADMGEN ---
This patient, Bartolo Dent, was admitted to IMU Room 205-01. Patient/family oriented to hospital policies and general routines including ID bracelet, bed and alarms, visiting hours, pain management, procedures, bathroom and other care routines, personal items, smoking policy, room service/diet, and visiting hours. Information on how to activate the Rapid Response Team has been discussed. Patient/Family are encouraged to report perceived risks to care and to ask questions if they do not understand what they are told or what they should do.
[2022-03-31] VITALS (32 sets, daily range): BP systolic 107–142; BP diastolic 55–80; PULSE 85–931; RESP 18–36; TEMP 36.6–38.7; O2SAT 90–100; BMI 24.3
--- NOTE | 2022-03-31 | ECHO_ITS ---
Patient Info Name: Bartolo Dent Age: 77 years : 1945 Gender: Male Ht: 68 in Wt: 160 lbs BSA: 1.87 m2 HR: 103 bpm BP: 142 / 70 mmHg Heart Rhythm: Sinus Rhythm Technical Quality: Fair Exam Date: 03/31/2022 11:27 AM Exam Location: [facility] Pulmonary Exam Room: 231 Patient Status: Inpatient Admit Date: 03/30/2022 Staff Ordering Physician: Vicky Bonner MD Combine Mechanic: Rachel Gage RDCS Attending Provider: Berto Mulligan MD Referring Physician: Kailey MICHELE; Exam Type: CA echo doppler color flow Study Info Indications - ELEVATED TROPONINS Complete two-dimensional, color flow and Doppler transthoracic echocardiogram is performed. Summary 1. Complete two-dimensional, color flow and Doppler transthoracic echocardiogram is performed. 2. Left ventricular chamber dimension is normal. 3. Left ventricular systolic function is normal, estimated at 50-55%. 4. Posterior segment is hypodynamic. 5. Left atrial chamber dimension is moderately enlarged. 6. There is trace mitral valve regurgitation. 7. The mitral valve annulus is moderately calcified. 8. There is mild aortic valve stenosis with a peak velocity of 276 cm/s, mean gradient of 18 mmHg, and aortic valve area of 1.3 cm2. Left Ventricle Left ventricular chamber dimension is normal. Left ventricular systolic function is normal, estimated at 50-55%. The left ventricular diastolic function is grade I diastolic dysfunction. Posterior segment is hypodynamic. Right Ventricle Right ventricular chamber dimension is normal. Left Atria Left atrial chamber dimension is moderately enlarged. Right Atria Right atrial chamber dimension is normal. Aortic Valve The aortic valve is trileaflet. There is moderate aortic valve sclerosis. There is mild aortic valve stenosis with a peak velocity of 276 cm/s, mean gradient of 18 mmHg, and aortic valve area of 1.3 cm2. Pulmonic Valve The pulmonic valve is normal. Mitral Valve The mitral valve has normal leaflets. There is trace mitral valve regurgitation. The mitral valve annulus is moderately calcified. Tricuspid Valve The tricuspid valve leaflets are normal. Pericardium/Pleural The pericardium appears normal. Aorta The aortic root size at the sinus of Valsalva is normal. Left Ventricular Outflow Tract Name Value Normal LVOT 2D LVOT Diameter 2.0 cm LVOT Doppler LVOT Peak Gradient 6 mmHg LVOT Mean Gradient 3 mmHg LVOT VTI 21 cm LVOT VTI/AV VTI Ratio 0.4 LVOT Stroke Volume 68 ml LVOT CO 15.3 l/min LVOT CI 8.2 l/min/m2 Pulmonic Valve Name Value Normal PV Doppler PV Peak Gradient 4 mmHg
[2022-03-31] MEDS: SODIUM CHLORIDE 0.9% IV 250 ML BAG IVPB (01:09)
[2022-03-31 04:54] LABS: Hematocrit 25.8 % (42.0-52.0); Hemoglobin 8.3 g/dL (14.0-18.0); Mean Corpuscular HGB Conc 32.2 g/dl (32-36); Mean Corpuscular Hemoglobin 28.8 pg (26-34); Mean Corpuscular Volume 89.6 fl (80-100); Platelet Count Result 206 k/mm3 (150-375); Red Blood Count 2.88 M/mm3 (4.6-6.20); Red Cell Distribution Width 15.8 % (11.5-14.5); White Blood Count 7.2 K/mm3 (4.5-10.0)
[2022-03-31 05:11] LABS: Anion Gap 4 mmol/L (8-16); Blood Urea Nitrogen 26 mg/dL (9-20); Calcium 8.3 mg/dL (8.4-10.2); Carbon Dioxide 27 mmol/L (22-30); Chloride 100 mmol/L (98-107); Estimated CRCL calculation 51 ml/min; Estimated Glomerular Filt Rate > 60; Glucose 93 mg/dL (65-110); Potassium 4.1 mmol/L (3.4-5.0); Sodium 131 mmol/L (137-145)
[2022-03-31] MEDS: IPRATROPIUM BR 0.02% INH SOLN 0.5 MG/2.5 ML VIAL INHALATION (05:27)
[2022-03-31] MEDS: ALBUTEROL SULFATE NEB 2.5 MG/3 ML INH INHALATION (05:27)
--- NOTE | 2022-03-31 05:59 | PC.NURSE ---
Dr. Bonner called for pt desaturations and increased O2 requirements. Orders obtained for continuous bipap 18/8, rate of 18, & 100% FiO2 and reevaluate with ABG in 1 hour. Pt did not tolerate bipap. Dr. Bonner on the way to evaluate pt and discuss code status.
[2022-03-31 06:08] LABS: Alveolar/Arterial O2 Gradient 263.9 mmHg; Base Excess ABG 0.6 mEq/l (+/-2.0); Fractional Inspired Oxygen 50 %; HCO3 ABG 22.2 mEq/l (22.0-26.0); Oxygen Content ABG 13.2 %vol (16.0-22.0); Oxygen Saturation ABG 95.1 % (95.0-100.0); Oxyhemoglobin 91.6 % THb (90.0-100.0); PCO2 ABG 25.8 mmHg (35.0-45.0); PO2 ABG 63.6 mmHg (80.0-100.0); PO2 FiO2 Ratio Arterial Blood 1.27 %; Total Hemoglobin 10.2 g/dL (12.0-18.0)
[2022-03-31 06:17] LABS: Device NASAL CANNULA; Modified Allen's Test Pass; Site Drawn LEFT RADIAL; pH ABG 7.552 (7.350-7.450)
[2022-03-31 07:14] LABS: Lactic Acid Reflex 1.2 mmol/L (0.7-2.0)
[2022-03-31] MEDS: APIXABAN 5 MG TABLET PO ×2 (09:32→20:31)
[2022-03-31] MEDS: METOPROLOL TARTRATE 25 MG TABLET PO (09:32)
[2022-03-31] MEDS: ASPIRIN 81 MG ENTERIC TABLET PO (09:32)
[2022-03-31] MEDS: PANTOPRAZOLE 40 MG TABLET PO (09:32)
--- NOTE | 2022-03-31 11:05 | PM.IMPN ---
Progress Note: A&P Assessment and Plan (1) Pneumonia: Code(s): J18.9 - Pneumonia, unspecified organism Status: Acute Assessment and Plan: (2) Lymphoma: Code(s): C85.90 - Non-Hodgkin lymphoma, unspecified, unspecified site Status: Acute Assessment and Plan: (3) Hypoxia: Code(s): R09.02 - Hypoxemia Status: Acute Assessment and Plan: (4) Pancytopenia: Code(s): D61.818 - Other pancytopenia Status: Acute Assessment and Plan: (5) Generalized weakness: Code(s): R53.1 - Weakness Status: Acute Assessment and Plan: PT OT when clinically able Plan This is a 77-year-old male with a recently diagnosed large B-cell lymphoma patient is undergoing? chemotherapy? he has been living at a custodial facility.? Today he comes to the emergency room due to fatigue, poor appetite, shortness of breath, chills, rigors, for the last 2 days or so cough productive of clear sputum, generalized malaise, body aches and pains, generalized weakness.? Preliminary workup was significant for chest x-ray with diffuse opacities, he tested negative for COVID, chemistry panel sodium 1 was 128 chloride was 96 hemoglobin 9.7.? patient is been admitted for further evaluation management and treatment. # generalized weakness/fatigue/shortness of breath/chills # sepsis with tachycardia, fever and pneumonia # bilateral multifocal pneumonia recent chemotherapy custodial resident. Tested negative for COVID. Treated as healthcare associated pneumonia with vancomycin cefepime and Zithromax. Pancultured follow cultures. Respiratory cultures # history of non Hodgkin's lymphoma on active chemotherapy. # acute hypoxic respiratory failure continue supplemental oxygen. CTA is negative for PE. BNP elevated at 2110. Lactic acid is 1.4 troponin negative COVID is negative EKG with sinus tachycardia Subsequent chest x-ray reveals some pulmonary vascular congestion developing. Will give a dose of Lasix today # recent deep venous thrombosis on oral anticoagulant diagnose couple of weeks ago. DVT left leg. Started on Eliquis it would be continued # pancytopenia likely related to chemotherapy # hyponatremia # generalized weakness PT OT # hypertension # hyperlipidemia # history of prostate cancer status post prostatectomy # DVT prophylaxis already on apixaban # do not resuscitate Subjective Date/time seen: 03/31/22 11:05 Interval history: HPI:This is a 77-year-old male with a recently diagnosed large B-cell lymphoma patient is undergoing? chemotherapy? he has been living at a custodial facility.? Today he comes to the emergency room due to fatigue, poor appetite, shortness of breath, chills, rigors, for the last 2 days or so cough productive of clear sputum, generalized malaise, body aches and pains, generalized weakness.? Preliminary workup was significant for chest x-ray with diffuse opacities, he tested negative for COVID, chemistry panel sodium 1 was 128 chloride was 96 hemoglobin 9.7.? patient is been admitted for further evaluation management and treatment. 03/31/2022 the better today. Minimal cough minimal expectoration. Denies any chest pain. His shortness of breath increasing oxygen requirement overnight. Now back down to 5 L this morning. Chest x-ray is reviewed. Chemotherapy was 2 weeks Review of Systems Review of Systems: All systems reviewed & are unremarkable except as noted in HPI and below Exam Narrative: GENERAL: The patient is well developed, not in acute distress HEENT: Nonicteric sclerae, PERRLA, EOMI. Oropharynx clear. Moist mucous membranes. Conjunctivae appear well perfused. CHEST: Chest wall is nontender. HEART: Regular rate and rhythm without murmur, rubs, or gallops LUNGS: Coarse breath sounds bilaterally. no respiratory distress ABDOMEN: Soft, positive bowel sounds, non-tender, no organomegaly. SKIN: No rash, no excessive bruising, petech
[2022-03-31] MEDS: FUROSEMIDE INJ 40 MG/4 ML VIAL 20 MG IV PUSH (14:33)
[2022-03-31] MEDS: CENTRAL LINE FLUSH 10 ML IV PUSH ×2 (14:33→20:54)
[2022-03-31] MEDS: ACETAMINOPHEN 325 MG TABLET 650 MG PO (20:31)
[2022-04-01] VITALS (15 sets, daily range): BP systolic 107–139; BP diastolic 59–81; PULSE 80–116; RESP 18–24; TEMP 36.2–37.1; O2SAT 91–100
[2022-04-01] MEDS: CENTRAL LINE FLUSH 10 ML IV PUSH ×3 (00:52→20:45)
[2022-04-01 06:14] LABS: Basophils Absolute Auto 0.1 K/mm3 (0.0-0.1); Basophils Percent Auto 0.6 % (0.2-1.2); Eosinophils Absolute Auto 0.2 K/mm3 (0-0.3); Eosinophils Percent Auto 2.5 % (0-4.4); Hematocrit 25.3 % (42.0-52.0); Hemoglobin 8.1 g/dL (14.0-18.0); Immature Granulocyte Absolute 0.11 K/mm3 (0.00-0.031); Immature Granulocyte Percent A 1.3 % (0-0.5); Lymphocytes Absolute Auto 0.25 K/mm3 (0.9-3.2); Mean Corpuscular Hemoglobin 28.9 pg (26-34); Mean Corpuscular Volume 90.4 fl (80-100); Mean Platelet Volume 9.9 fl (7.4-10.4); Monocytes Absolute Auto 0.9 K/mm3 (0.1-0.6); Monocytes Percent Auto 10.1 % (2.6-8.5); Neutrophils Percent Auto 82.5 % (45.5-73.1); Platelet Count Result 216 k/mm3 (150-375); Red Cell Distribution Width 15.7 % (11.5-14.5); White Blood Count 8.4 K/mm3 (4.5-10.0)
[2022-04-01 06:28] LABS: Alanine Aminotransferase 35 U/L (6-50); Albumin Level 2.5 g/dL (3.5-5.1); Alkaline Phosphatase 75 U/L (38-126); Anion Gap 5 mmol/L (8-16); Aspartate Amino Transferase 45 U/L (17-59); Bilirubin,Total 0.3 mg/dL (0.2-1.3); Blood Urea Nitrogen 24 mg/dL (9-20); Calcium 8.3 mg/dL (8.4-10.2); Carbon Dioxide 28 mmol/L (22-30); Chloride 99 mmol/L (98-107); Estimated CRCL calculation 57 ml/min; Estimated Glomerular Filt Rate > 60; Glucose 103 mg/dL (65-110); Magnesium 1.6 mg/dL (1.6-2.3); Potassium 3.7 mmol/L (3.4-5.0); Sodium 132 mmol/L (137-145)
[2022-04-01] MEDS: METOPROLOL TARTRATE 25 MG TABLET PO (08:57)
[2022-04-01] MEDS: APIXABAN 5 MG TABLET PO ×2 (08:58→20:45)
[2022-04-01] MEDS: PANTOPRAZOLE 40 MG TABLET PO (08:58)
[2022-04-01] MEDS: ASPIRIN 81 MG ENTERIC TABLET PO (08:58)
--- NOTE | 2022-04-01 14:57 | PCPTNOTE ---
Attempted PT evaluation, Patient refused stating I already had therapy. It was explained to the patient that occupational therapy was in prior to Physical therapy. Patient stated I can't. RN aware. Will follow.
--- NOTE | 2022-04-01 15:29 | PM.IMPN ---
Progress Note: A&P Assessment and Plan (1) Pneumonia: Code(s): J18.9 - Pneumonia, unspecified organism Status: Acute Assessment and Plan: (2) Lymphoma: Code(s): C85.90 - Non-Hodgkin lymphoma, unspecified, unspecified site Status: Acute Assessment and Plan: (3) Hypoxia: Code(s): R09.02 - Hypoxemia Status: Acute Assessment and Plan: (4) Pancytopenia: Code(s): D61.818 - Other pancytopenia Status: Acute Assessment and Plan: (5) Generalized weakness: Code(s): R53.1 - Weakness Status: Acute Assessment and Plan: PT OT when clinically able Plan This is a 77-year-old male with a recently diagnosed large B-cell lymphoma patient is undergoing? chemotherapy? he has been living at a correction facility.? Today he comes to the emergency room due to fatigue, poor appetite, shortness of breath, chills, rigors, for the last 2 days or so cough productive of clear sputum, generalized malaise, body aches and pains, generalized weakness.? Preliminary workup was significant for chest x-ray with diffuse opacities, he tested negative for COVID, chemistry panel sodium 1 was 128 chloride was 96 hemoglobin 9.7.? patient is been admitted for further evaluation management and treatment. # generalized weakness/fatigue/shortness of breath/chills # sepsis with tachycardia, fever and pneumonia # bilateral multifocal pneumonia recent chemotherapy correction resident. Tested negative for COVID. Treated as healthcare associated pneumonia with vancomycin cefepime and Zithromax. Pancultured follow cultures. Respiratory cultures Echo 03/31/2020 with EF post segmental hypodynamic mild aortic valve stenosis # history of non Hodgkin's lymphoma on active chemotherapy. # acute hypoxic respiratory failure continue supplemental oxygen. CTA is negative for PE. BNP elevated at 2110. Lactic acid is 1.4 troponin negative COVID is negative EKG with sinus tachycardia Subsequent chest x-ray reveals some pulmonary vascular congestion developing. Received a dose of Lasix 20 mg IV x1 03/31/2022 with good diuresis. Oxygen requirement improved subsequently. # recent deep venous thrombosis on oral anticoagulant diagnose couple of weeks ago. DVT left leg. Started on Eliquis it would be continued # pancytopenia likely related to chemotherapy # hyponatremia Slowly improving # generalized weakness PT OT # hypertension # hyperlipidemia # history of prostate cancer status post prostatectomy # DVT prophylaxis already on apixaban # do not resuscitate Subjective Date/time seen: 04/01/22 15:29 Interval history: HPI:This is a 77-year-old male with a recently diagnosed large B-cell lymphoma patient is undergoing? chemotherapy? he has been living at a correction facility.? Today he comes to the emergency room due to fatigue, poor appetite, shortness of breath, chills, rigors, for the last 2 days or so cough productive of clear sputum, generalized malaise, body aches and pains, generalized weakness.? Preliminary workup was significant for chest x-ray with diffuse opacities, he tested negative for COVID, chemistry panel sodium 1 was 128 chloride was 96 hemoglobin 9.7.? patient is been admitted for further evaluation management and treatment. 03/31/2022 the better today. Minimal cough minimal expectoration. Denies any chest pain. His shortness of breath increasing oxygen requirement overnight. Now back down to 5 L this morning. Chest x-ray is reviewed. Chemotherapy was 2 weeks 04/01/2022 no overnight events. Feeling better. Minimal cough. Denies any chest pain. Vitals reviewed. Oxygen requirement is lowered. Review of Systems Review of Systems: All systems reviewed & are unremarkable except as noted in HPI and below Exam Narrative: GENERAL: The patient is well developed, not in acute distress HEENT: Nonicteric sclerae, PERRLA, EOMI. Oropharynx clear. Moist mucous me
[2022-04-01] MEDS: ACETAMINOPHEN 325 MG TABLET 650 MG PO (22:18)
[2022-04-02] VITALS (9 sets, daily range): BP systolic 102–151; BP diastolic 60–83; PULSE 80–132; RESP 16–22; TEMP 36.5–36.8; O2SAT 95–99
[2022-04-02 06:02] LABS: Basophils Percent Auto 0.4 % (0.2-1.2); Eosinophils Absolute Auto 0.4 K/mm3 (0-0.3); Eosinophils Percent Auto 4.8 % (0-4.4); Hematocrit 25.2 % (42.0-52.0); Hemoglobin 8.2 g/dL (14.0-18.0); Immature Granulocyte Percent A 1.1 % (0-0.5); Lymphocytes Absolute Auto 0.28 K/mm3 (0.9-3.2); Mean Corpuscular HGB Conc 32.5 g/dl (32-36); Mean Corpuscular Hemoglobin 29.4 pg (26-34); Mean Corpuscular Volume 90.3 fl (80-100); Mean Platelet Volume 9.6 fl (7.4-10.4); Monocytes Absolute Auto 0.8 K/mm3 (0.1-0.6); Neutrophils Absolute Auto 7.5 K/mm3 (1.3-6.7); Neutrophils Percent Auto 81.7 % (45.5-73.1); Platelet Count Result 220 k/mm3 (150-375); Red Blood Count 2.79 M/mm3 (4.6-6.20); Red Cell Distribution Width 15.6 % (11.5-14.5); White Blood Count 9.2 K/mm3 (4.5-10.0)
[2022-04-02] MEDS: CENTRAL LINE FLUSH 10 ML IV PUSH ×3 (06:04→22:25)
[2022-04-02 06:41] LABS: Alanine Aminotransferase 65 U/L (6-50); Albumin Level 2.2 g/dL (3.5-5.1); Alkaline Phosphatase 74 U/L (38-126); Anion Gap 5 mmol/L (8-16); Aspartate Amino Transferase 104 U/L (17-59); Bilirubin,Total 0.2 mg/dL (0.2-1.3); Blood Urea Nitrogen 28 mg/dL (9-20); Calcium 8.8 mg/dL (8.4-10.2); Carbon Dioxide 28 mmol/L (22-30); Chloride 98 mmol/L (98-107); Estimated CRCL calculation 63 ml/min; Estimated Glomerular Filt Rate > 60; Glucose 113 mg/dL (65-110); Magnesium 1.7 mg/dL (1.6-2.3); Potassium 3.5 mmol/L (3.4-5.0); Sodium 131 mmol/L (137-145)
--- NOTE | 2022-04-02 08:29 | PM.IMPN ---
Progress Note: A&P Assessment and Plan (1) Pneumonia: Code(s): J18.9 - Pneumonia, unspecified organism Status: Acute Assessment and Plan: Bilateral multifocal pneumonia with recent chemotherapy as well as [facility] resident status, treated with vancomycin, cefepime and azithromycin, abx day #4, cultures pending (2) Lymphoma: Code(s): C85.90 - Non-Hodgkin lymphoma, unspecified, unspecified site Status: Acute Assessment and Plan: On active chemotherapy, currently being held due to pneumonia (3) Hypoxia: Code(s): R09.02 - Hypoxemia Status: Acute Assessment and Plan: Due to above, stable There was some pulmonary vascular congestion noted, patient did receive 1 dose of IV Lasix on March 31 with good urine output, hypoxia has been stable since then. Patient was on 8 L nasal cannula, now stable on 2 L. (4) Pancytopenia: Code(s): D61.818 - Other pancytopenia Status: Acute Assessment and Plan: Likely secondary to malignancy being treated with chemotherapy, stable (5) Generalized weakness: Code(s): R53.1 - Weakness Status: Acute Assessment and Plan: Multifactorial, consult PT/OT when ready for discharge (6) Chronic diastolic heart failure: Code(s): I50.32 - Chronic diastolic (congestive) heart failure Status: Acute Assessment and Plan: Echo noted grade 1 diastolic heart failure, EF 50-55%, some hypodynamic posterior segments, enlarged left atrial chamber and mild aortic valve stenosis Plan History of prostate cancer status post prostatectomy DVT prophylaxis with apixaban Code status do not resuscitate Subjective Date/time seen: 04/02/22 08:29 Interval history: 04/02: No overnight events noted. On 1L overnight, now on room air. No chest pain or shortness of breath. No nausea, vomiting or diarrhea. No fevers or chills. Still with a residual cough and occasional dyspnea with exertion. Review of Systems Review of Systems: 12 point review of systems was assessed and was negative except as noted in the HPI Exam Narrative: General: No acute distress, alert and oriented per baseline HEENT: Atraumatic, normocephalic, mucous membranes moist CV: Regular rate and rhythm, S1, S2, soft MELISSA Lungs: Diminished throughout, poor air entry, no wheeze Abdomen: Soft, nontender, nondistended Extremities: Normal to inspection Skin: No rashes noted, no lesions or wounds seen Psych: Euthymic, normal affect Objective Data Vital Signs Vital Signs: Vital Signs - 24 hr 04/01/22 08:57 04/01/22 10:00 04/01/22 12:00 Temperature Pulse Rate 97 91 87 Pulse Rate [At Rest After Therapy Session] Respiratory Rate Blood Pressure Pulse Oximetry Pulse Oximetry [At Rest After Therapy Session] Oxygen Delivery Oxygen Flow Rate 04/01/22 13:26 04/01/22 16:00 04/01/22 16:00 Temperature 97.4 F L Pulse Rate 116 H 115 H Pulse Rate [At Rest After Therapy Session] 115 H Respiratory Rate 18 Blood Pressure 137/79 Pulse Oximetry 99 Pulse Oximetry [At Rest After Therapy Session] 91 Oxygen Delivery Nasal Cannula Oxygen Flow Rate 2 04/01/22 20:00 04/01/22 20:00 04/02/22 00:00 Temperature 98.8 F 97.7 F Pulse Rate 110 H 89 Pulse Rate [At Rest After Therapy Session] Respiratory Rate 24 H 22 H Blood Pressure 107/59 L 111/60 Pulse Oximetry 95 95 97 Pulse Oximetry [At Rest After Therapy Session] Oxygen Delivery Nasal Cannula Oxygen Flow Rate 2 04/01/22 20:00 04/02/22 00:00 04/02/22 04:00 Temperature Pulse Rate 113 H 87 80 Pulse Rate [At Rest After Therapy Session] Respiratory Rate Blood Pressure Pulse Oximetry Pulse Oximetry [At Rest After Therapy Session] Oxygen Delivery Oxygen Flow Rate 04/02/22 08:00 Temperature 97.7 F Pulse Rate 93 Pulse Rate [At Rest After Therapy Session] Respiratory Rate 20 Blood Pressure 151/83 H Pu
[2022-04-02] MEDS: ASPIRIN 81 MG ENTERIC TABLET PO (08:36)
[2022-04-02] MEDS: APIXABAN 5 MG TABLET PO ×2 (08:36→22:26)
[2022-04-02] MEDS: PANTOPRAZOLE 40 MG TABLET PO (08:36)
[2022-04-02] MEDS: METOPROLOL TARTRATE 25 MG TABLET PO (08:36)
--- NOTE | 2022-04-02 10:17 | PC.NURSE ---
This patient, Bartolo Dent, was transferred to [ [facility]] on 04/02/22 at 1017. Personal belongings sent with patient. Report given to [Maeve ]. Appropriate documentation sent with patient.
--- NOTE | 2022-04-02 11:42 | PC.NURSE ---
This patient, Bartolo Dent, was received from IMU on 04/02/22 at 0940. Patient/family oriented to unit policies and routines. Report received from Judy.
[2022-04-02 23:54] LABS: Vancomycin Trough 7.4 ug/mL (10.0-20.0)
[2022-04-03] VITALS (11 sets, daily range): BP systolic 118–139; BP diastolic 69–78; PULSE 82–101; RESP 16–18; TEMP 36.2–36.4; O2SAT 91–96
[2022-04-03] MEDS: CENTRAL LINE FLUSH 10 ML IV PUSH ×3 (05:57→20:26)
[2022-04-03 06:22] LABS: Estimated CRCL calculation 57 ml/min; Estimated Glomerular Filt Rate > 60
--- NOTE | 2022-04-03 07:23 | PM.IMPN ---
Progress Note: A&P Assessment and Plan (1) Pneumonia: Code(s): J18.9 - Pneumonia, unspecified organism Status: Acute Assessment and Plan: Bilateral multifocal pneumonia with recent chemotherapy as well as [facility] resident status, treated with vancomycin, cefepime and azithromycin, abx day #4, cultures pending, vanc trough likely subtherapeutic at 7, defer to pharmacy for better management 04/03: d/c vanc, azithro and cefepime, start levaquin for 3 more days and monitor symptoms (2) Lymphoma: Code(s): C85.90 - Non-Hodgkin lymphoma, unspecified, unspecified site Status: Acute Assessment and Plan: On active chemotherapy, currently being held due to pneumonia (3) Hypoxia: Code(s): R09.02 - Hypoxemia Status: Acute Assessment and Plan: Due to above, stable There was some pulmonary vascular congestion noted, patient did receive 1 dose of IV Lasix on March 31 with good urine output, hypoxia has been stable since then. Patient was on 8 L nasal cannula, now stable on 2 L. (4) Pancytopenia: Code(s): D61.818 - Other pancytopenia Status: Acute Assessment and Plan: Likely secondary to malignancy being treated with chemotherapy, stable (5) Generalized weakness: Code(s): R53.1 - Weakness Status: Acute Assessment and Plan: Multifactorial, consult PT/OT when ready for discharge (6) Chronic diastolic heart failure: Code(s): I50.32 - Chronic diastolic (congestive) heart failure Status: Acute Assessment and Plan: Echo noted grade 1 diastolic heart failure, EF 50-55%, some hypodynamic posterior segments, enlarged left atrial chamber and mild aortic valve stenosis (7) Transaminitis: Code(s): R74.01 - Elevation of levels of liver transaminase levels Status: Acute Assessment and Plan: Unknown etiology, check hepatitis panel, GGT, right upper quadrant ultrasound Plan History of prostate cancer status post prostatectomy DVT prophylaxis with apixaban Code status do not resuscitate Subjective Date/time seen: 04/03/22 07:23 Interval history: No overnight events noted. No chest pain or shortness of breath. No nausea, vomiting or diarrhea. No fevers or chills. Review of Systems Review of Systems: 12 point review of systems was assessed and was negative except as noted in the HPI Exam Narrative: General: No acute distress, alert and oriented per baseline HEENT: Atraumatic, normocephalic, mucous membranes moist CV: Regular rate and rhythm, S1, S2, soft MELISSA Lungs: Diminished throughout, poor air entry, no wheeze Abdomen: Soft, nontender, nondistended Extremities: Normal to inspection Skin: No rashes noted, no lesions or wounds seen Psych: Euthymic, normal affect Objective Data Vital Signs Vital Signs: Vital Signs - 24 hr 04/02/22 08:00 04/02/22 08:36 04/02/22 08:00 Temperature 97.7 F Pulse Rate 93 95 Respiratory Rate 20 Blood Pressure 151/83 H Pulse Oximetry 97 99 Oxygen Delivery Nasal Cannula Oxygen Flow Rate 1 04/02/22 08:00 04/02/22 12:00 04/02/22 14:00 Temperature 98.1 F Pulse Rate 122 H 101 H 95 Respiratory Rate 16 Blood Pressure 111/66 Pulse Oximetry 98 Oxygen Delivery Oxygen Flow Rate 04/02/22 16:00 04/02/22 20:45 04/02/22 20:00 Temperature 98.3 F Pulse Rate 105 H 106 H 132 H Respiratory Rate 16 Blood Pressure 102/63 Pulse Oximetry 95 Oxygen Delivery Oxygen Flow Rate 04/03/22 00:00 04/02/22 20:15 04/03/22 04:52 Temperature 97.5 F L Pulse Rate 95 98 Respiratory Rate 18 Blood Pressure 139/78 Pulse Oximetry 95 Oxygen Delivery Room Air Oxygen Flow Rate 04/03/22 04:00 Temperature Pulse Rate 89 Respiratory Rate Blood Pressure Pulse Oximetry Oxygen Delivery Oxygen Flow Rate Intake/Output Intake/Output: Intake & Output 03/31/22 04/01/22 04/02/22 04/03/22 23:59 23:59
[2022-04-03] MEDS: PANTOPRAZOLE 40 MG TABLET PO (08:49)
[2022-04-03] MEDS: METOPROLOL TARTRATE 25 MG TABLET PO (08:49)
[2022-04-03] MEDS: ASPIRIN 81 MG ENTERIC TABLET PO (08:51)
[2022-04-03] MEDS: APIXABAN 5 MG TABLET PO ×2 (08:51→20:26)
[2022-04-03 09:08] LABS: Basophils Absolute Auto 0.1 K/mm3 (0.0-0.1); Basophils Percent Auto 0.6 % (0.2-1.2); Eosinophils Absolute Auto 0.5 K/mm3 (0-0.3); Eosinophils Percent Auto 6.3 % (0-4.4); Hematocrit 25.4 % (42.0-52.0); Hemoglobin 8.3 g/dL (14.0-18.0); Immature Granulocyte Percent A 1.2 % (0-0.5); Lymphocytes Absolute Auto 0.33 K/mm3 (0.9-3.2); Lymphocytes Percent Auto 3.9 % (18.3-44.2); Mean Corpuscular HGB Conc 32.7 g/dl (32-36); Mean Corpuscular Hemoglobin 29.4 pg (26-34); Mean Corpuscular Volume 90.1 fl (80-100); Mean Platelet Volume 9.4 fl (7.4-10.4); Monocytes Absolute Auto 0.8 K/mm3 (0.1-0.6); Neutrophils Absolute Auto 6.6 K/mm3 (1.3-6.7); Platelet Count Result 255 k/mm3 (150-375); Red Blood Count 2.82 M/mm3 (4.6-6.20); Red Cell Distribution Width 15.5 % (11.5-14.5); White Blood Count 8.4 K/mm3 (4.5-10.0)
[2022-04-03 09:25] LABS: Alanine Aminotransferase 117 U/L (6-50); Albumin Level 2.3 g/dL (3.5-5.1); Alkaline Phosphatase 86 U/L (38-126); Anion Gap 4 mmol/L (8-16); Aspartate Amino Transferase 143 U/L (17-59); Bilirubin,Total 0.1 mg/dL (0.2-1.3); Blood Urea Nitrogen 25 mg/dL (9-20); Calcium 8.5 mg/dL (8.4-10.2); Carbon Dioxide 29 mmol/L (22-30); Chloride 96 mmol/L (98-107); Estimated CRCL calculation 63 ml/min; Estimated Glomerular Filt Rate > 60; Glucose 142 mg/dL (65-110); Potassium 3.7 mmol/L (3.4-5.0); Sodium 129 mmol/L (137-145)
[2022-04-03 10:45] LABS: Hepatitis B Surface Antigen Negative (Negative)
[2022-04-03 10:51] LABS: HAV RESULT Negative (Negative); Hepatitis B Core IgM Result Negative (Negative)
[2022-04-03 11:03] LABS: Hepatitis C Virus Antibody Negative (Negative)
[2022-04-03] MEDS: levoFLOXacin 750 MG TABLET PO (18:11)
[2022-04-04] VITALS (7 sets, daily range): BP systolic 115–127; BP diastolic 71–76; PULSE 84–100; RESP 18–20; TEMP 35.9–36.2; O2SAT 97–99
[2022-04-04 06:39] LABS: Basophils Percent Auto 0.5 % (0.2-1.2); Eosinophils Absolute Auto 0.6 K/mm3 (0-0.3); Eosinophils Percent Auto 7.4 % (0-4.4); Hematocrit 25.3 % (42.0-52.0); Hemoglobin 8.3 g/dL (14.0-18.0); Immature Granulocyte Absolute 0.11 K/mm3 (0.00-0.031); Immature Granulocyte Percent A 1.3 % (0-0.5); Lymphocytes Absolute Auto 0.36 K/mm3 (0.9-3.2); Lymphocytes Percent Auto 4.3 % (18.3-44.2); Mean Corpuscular HGB Conc 32.8 g/dl (32-36); Mean Corpuscular Hemoglobin 29.4 pg (26-34); Mean Corpuscular Volume 89.7 fl (80-100); Mean Platelet Volume 9.4 fl (7.4-10.4); Monocytes Absolute Auto 0.7 K/mm3 (0.1-0.6); Monocytes Percent Auto 8.4 % (2.6-8.5); Neutrophils Absolute Auto 6.6 K/mm3 (1.3-6.7); Neutrophils Percent Auto 78.1 % (45.5-73.1); Platelet Count Result 293 k/mm3 (150-375); Red Blood Count 2.82 M/mm3 (4.6-6.20); Red Cell Distribution Width 15.4 % (11.5-14.5); White Blood Count 8.4 K/mm3 (4.5-10.0)
[2022-04-04] MEDS: CENTRAL LINE FLUSH 10 ML IV PUSH ×2 (06:47→15:32)
[2022-04-04 06:57] LABS: Alanine Aminotransferase 128 U/L (6-50); Albumin Level 2.3 g/dL (3.5-5.1); Alkaline Phosphatase 88 U/L (38-126); Anion Gap 6 mmol/L (8-16); Aspartate Amino Transferase 98 U/L (17-59); Bilirubin,Total 0.2 mg/dL (0.2-1.3); Blood Urea Nitrogen 28 mg/dL (9-20); Calcium 8.2 mg/dL (8.4-10.2); Carbon Dioxide 27 mmol/L (22-30); Chloride 98 mmol/L (98-107); Estimated CRCL calculation 63 ml/min; Estimated Glomerular Filt Rate > 60; Glucose 96 mg/dL (65-110); Potassium 3.9 mmol/L (3.4-5.0); Sodium 131 mmol/L (137-145)
[2022-04-04] MEDS: APIXABAN 5 MG TABLET PO (08:48)
[2022-04-04] MEDS: PANTOPRAZOLE 40 MG TABLET PO (08:48)
[2022-04-04] MEDS: METOPROLOL TARTRATE 25 MG TABLET PO (08:48)
[2022-04-04] MEDS: ASPIRIN 81 MG ENTERIC TABLET PO (08:49)
--- NOTE | 2022-04-04 10:11 | PM.IMPN ---
Progress Note: A&P Assessment and Plan (1) Pneumonia: Code(s): J18.9 - Pneumonia, unspecified organism Status: Acute Assessment and Plan: Bilateral multifocal pneumonia with recent chemotherapy as well as senior care resident status, treated with vancomycin, cefepime and azithromycin, abx day #4, cultures pending, vanc trough likely subtherapeutic at 7, defer to pharmacy for better management 04/03: d/c vanc, azithro and cefepime, start levaquin for 3 more days and monitor symptoms (2) Lymphoma: Code(s): C85.90 - Non-Hodgkin lymphoma, unspecified, unspecified site Status: Acute Assessment and Plan: On active chemotherapy, currently being held due to pneumonia (3) Hypoxia: Code(s): R09.02 - Hypoxemia Status: Acute Assessment and Plan: Due to above, stable There was some pulmonary vascular congestion noted, patient did receive 1 dose of IV Lasix on March 31 with good urine output, hypoxia has been stable since then. Patient was on 8 L nasal cannula, now stable on 2 L. (4) Pancytopenia: Code(s): D61.818 - Other pancytopenia Status: Acute Assessment and Plan: Likely secondary to malignancy being treated with chemotherapy, stable (5) Generalized weakness: Code(s): R53.1 - Weakness Status: Acute Assessment and Plan: Multifactorial, consult PT/OT when ready for discharge (6) Chronic diastolic heart failure: Code(s): I50.32 - Chronic diastolic (congestive) heart failure Status: Acute Assessment and Plan: Echo noted grade 1 diastolic heart failure, EF 50-55%, some hypodynamic posterior segments, enlarged left atrial chamber and mild aortic valve stenosis (7) Transaminitis: Code(s): R74.01 - Elevation of levels of liver transaminase levels Status: Acute Assessment and Plan: Unknown etiology, check hepatitis panel, GGT, right upper quadrant ultrasound Plan History of prostate cancer status post prostatectomy DVT prophylaxis with apixaban Code status do not resuscitate Subjective Date/time seen: 04/04/22 10:11 Exam Narrative: General: No acute distress, alert and oriented per baseline HEENT: Atraumatic, normocephalic, mucous membranes moist CV: Regular rate and rhythm, S1, S2, soft MELISSA Lungs: Diminished throughout, poor air entry, no wheeze Abdomen: Soft, nontender, nondistended Extremities: Normal to inspection Skin: No rashes noted, no lesions or wounds seen Psych: Euthymic, normal affect Objective Data Vital Signs Vital Signs: Vital Signs - 24 hr 04/03/22 12:00 04/03/22 13:50 04/03/22 16:00 Temperature 97.5 F L Pulse Rate 82 90 101 H Respiratory Rate 16 Blood Pressure 118/69 Pulse Oximetry 95 Oxygen Delivery Oxygen Flow Rate 04/03/22 20:40 04/03/22 20:00 04/03/22 20:00 Temperature 97.2 F L Pulse Rate 101 H 100 Respiratory Rate 18 Blood Pressure 133/70 Pulse Oximetry 96 Oxygen Delivery Room Air Oxygen Flow Rate 04/04/22 00:00 04/04/22 02:44 04/04/22 04:00 Temperature 96.6 F L Pulse Rate 98 100 100 Respiratory Rate 18 Blood Pressure 127/76 Pulse Oximetry 97 Oxygen Delivery Oxygen Flow Rate 04/04/22 08:48 04/04/22 08:00 Temperature Pulse Rate 99 Respiratory Rate Blood Pressure Pulse Oximetry 98 Oxygen Delivery Nasal Cannula Oxygen Flow Rate 2 Intake/Output Intake/Output: Intake & Output 04/01/22 04/02/22 04/03/22 04/04/22 23:59 23:59 23:59 23:59 Intake Total 1999 1330 990 190 Output Total 3100 2350 1175 Balance -1100 -1020 -185 190 Meds/Results Medications: Active Medications Generic Name Dose Route Start Last Admin Trade Name Freq PRN Reason Stop Dose Admin Acetaminophen 650 mg 03/31/22 20:15 04/01/22 22:18 Acetaminophen 325 Mg Tablet PO 650 mg Q4H PRN Administration Mild Pain (1-3) or Fever Apixaban 5 mg 03/31/22 09:00 04/04/22 08:48
--- NOTE | 2022-04-04 13:22 | PM.DS ---
DS: Admitting Diagnosis Discharge Date April 04, 2022 Admitting Diagnosis Pneumonia DS: Discharge Diagnosis Discharge Diagnosis (1) Pneumonia: Code(s): J18.9 - Pneumonia, unspecified organism Status: Acute (2) Lymphoma: Code(s): C85.90 - Non-Hodgkin lymphoma, unspecified, unspecified site Status: Acute (3) Hypoxia: Code(s): R09.02 - Hypoxemia Status: Acute (4) Pancytopenia: Code(s): D61.818 - Other pancytopenia Status: Acute (5) Generalized weakness: Code(s): R53.1 - Weakness Status: Acute (6) Chronic diastolic heart failure: Code(s): I50.32 - Chronic diastolic (congestive) heart failure Status: Acute (7) Transaminitis: Code(s): R74.01 - Elevation of levels of liver transaminase levels Status: Acute DS: Summary Hospital Course Hospital Course: 77-year-old male with recently diagnosed large B-cell lymphoma undergoing chemotherapy from halfway facility is presenting to the ER with shortness of breath and fatigue and found to have pneumonia. He was started on broad-spectrum antibiotics and symptoms improved slowly. He was noted to have pancytopenia likely secondary to chemotherapy. He was found to be septic and developed some vascular congestion. He was given Lasix for this. He was continued on his Eliquis for recently diagnosed DVT. He did require supplemental oxygen for a few days. He was transitioned from IV broad-spectrum antibiotics to oral Levaquin. Symptoms continued to improve on oral Levaquin, he was weaned back to room air and discharged in good condition. Time Spent with Patient Time attestation: Total time spent providing and/or coordinating discharge services: DS: Data Data Completed and Pending Labs on day of discharge: Labs from last 24 hours 04/04/22 04/04/22 06:27 06:27 WBC 8.4 RBC 2.82 L Hgb 8.3 L Hct 25.3 L MCV 89.7 MCH 29.4 MCHC 32.8 RDW 15.4 H Plt Count 293 MPV 9.4 Immature Gran % (Auto) 1.3 H Neut % (Auto) 78.1 H Lymph % (Auto) 4.3 L [place] % (Auto) 8.4 Eos % (Auto) 7.4 H Baso % (Auto) 0.5 Lymph # (Auto) 0.36 L [place] # (Auto) 0.7 H Eos # (Auto) 0.6 H Baso # (Auto) 0.0 Abs Immat Gran (auto) 0.11 H Absolute Neuts (auto) 6.6 Absolute Nucleated RBC 0.0 Nucleated RBC % 0.0 Sodium 131 L Potassium 3.9 Chloride 98 Carbon Dioxide 27 Anion Gap 6 L BUN 28 H Creatinine 0.80 Estim Creat Clear Calc 63 Estimated GFR > 60 Glucose 96 Calcium 8.2 L Total Bilirubin 0.2 AST 98 H ALT 128 H Alkaline Phosphatase 88 Total Protein 5.0 L Albumin 2.3 L Preliminary micro results at discharge 03/30/22 19:34 Blood Culture - Preliminary Blood 03/30/22 19:35 Blood Culture - Preliminary Blood Discharge Plan Discharge Attending physician on discharge: Arlene العراقي Discharging Clinician: Arlene العراقي Patient Disposition: SNF Activity: as tolerated Diet: as tolerated Patient Instructions: Apixaban (By mouth), Bronchiolitis (DC) Stand Alone Forms: General Discharge Information Discharge Medications: New levofloxacin 750 mg tablet 750 mg PO DAILY Qty: 3 0RF Continued aspirin 81 mg Tablet,Delayed Release (Dr/Ec) 81 mg PO DAILY Qty: 0 potassium citrate 10 mEq (1,080 mg) tablet extended release 10 meq PO BID metoprolol tartrate 50 mg tablet 25 mg PO DAILY lansoprazole [Prevacid 24Hr] 15 mg capsule,delayed release(DR/EC) 15 mg PO DAILY pravastatin 20 mg tablet 20 mg PO DAILY Centrum Silver Men 300-600-300 mcg Tablet 1 tablet PO DAILY Eliquis 5 mg Tablet 5 mg PO BID Date of admission: 03/30/22 21:51 Primary Care Provider: Glenroy,Tramaine Admitting Provider: Vicky Bonner V. Attending physician on admission: Arlene العراقي Condition: Serious
[2022-04-04 14:45] LABS: EDCOVIDSCREEN Negative (Negative)
[2022-04-06 20:27] LABS: GGT 23 U/L (3-70)
== END 2022-04-04 16:29 | DRG 871 ==
LOC: ANHED 21:55 → ANHIMU 23:02 → ANH2MED 04-02 10:17
PROVIDERS: Internal Medicine; Admitting Provider Internal Medicine; Emergency Provider Emergency Medicine; PCP Internal Medicine; Visit Provider Student in an Organized Health Care Education/Training Program
DX: A41.9 Sepsis, unspecified organism (principal); J18.9 Pneumonia, unspecified organism; J96.01 Acute respiratory failure with hypoxia; D61.810 Antineoplastic chemotherapy induced pancytopenia; C83.30 Diffuse large B-cell lymphoma, unspecified site; I82.402 Acute embolism and thrombosis of unspecified deep veins of left lower extremity; E87.1 Hypo-osmolality and hyponatremia; I50.32 Chronic diastolic (congestive) heart failure; I11.0 Hypertensive heart disease with heart failure; T45.1X5A Adverse effect of antineoplastic and immunosuppressive drugs, initial encounter; Y95 Nosocomial condition; I35.0 Nonrheumatic aortic (valve) stenosis; R74.01 Elevation of levels of liver transaminase levels; R53.1 Weakness; M19.90 Unspecified osteoarthritis, unspecified site; M10.9 Gout, unspecified; E78.5 Hyperlipidemia, unspecified; Z20.822 Contact with and (suspected) exposure to COVID-19; Z66 Do not resuscitate; Z79.01 Long term (current) use of anticoagulants; Z79.82 Long term (current) use of aspirin; Z85.46 Personal history of malignant neoplasm of prostate; Z90.79 Acquired absence of other genital organ(s)
CPT/HCPCS: 36415; 36600; 71045; 71275; 76705; 80048; 80053; 80074; 80202; 82565; 82805; 82977; 83605; 83735; 83880; 84484; 85025; 85027; 85610; 85730; 87040; 87426; 93005; 93306; 94640; 96361; 96365; 96367; 97110; 97162; 97165; 97530; 97535; 99285; A9270; C9803; J0456; J0692; J0696; J1940; J1956; J3370; J7030; J7050; Q9967; U0003; U0005

== ENCOUNTER 2024-09-01 11:06 | Outpatient (CLI) | payer OTHER, SELFPAY ==
--- NOTE | ~2024-09-01 | MR_ITS ---
EXAMINATION: MR foot RT wo/w con DATE: 09/01/2024 12:17 INDICATION: Right great toe pain and osteomyelitis. TECHNIQUE: Magnetic resonance imaging (MRI) of the right foot was performed without and with 14 mL Mu ltiHance intravenous contrast. COMPARISON: Right second toe radiographs 02/16/2015 FINDINGS: There is dorsiflexion of the metatarsophalangeal joints and flexion of the first interphala ngeal joint and second-fifth proximal interphalangeal joints. No fracture. There is chronic deformity of tuft of first distal phalanx with bone volume loss medially. There is no bone marrow edema to sug gest acute osteomyelitis. There is mild osteoarthritis of first metatarsophalangeal joint and some of the interphalangeal joints and midfoot joints. Lisfranc ligament is normal. The flexor and extensor tendons are normal. There is subcutaneous edema of the forefoot. IMPRESSION: 1. No evidence of osteomyelitis. Reviewed, dictated and finalized at location A. [facility]MI[facility]
== END 2024-09-01 11:07 | disposition home or self-care (01) ==
LOC: MICIMG 11:11
PROVIDERS: PCP Internal Medicine; Visit Provider Podiatrist Foot & Ankle Surgery
DX: M86.171 Other acute osteomyelitis, right ankle and foot (principal)
CPT/HCPCS: 73720; A9577